=== PATIENT | male | born 1980 ===

== ENCOUNTER 2019-02-16 11:47 | Emergency (ER) | payer OTHER ==
[2019-02-16] MEDS ORDERED: NACL 0.9% 1000 ML 1,000 ML IV ONE ×4 (12:00→19:54)
--- NOTE | 2019-02-16 12:01 | Event Note ---
ED Screening Note Date of service: 02/16/19 Time: 11:57 ED Screening Note: 38 y/o male comes in for hyperglycemia. Just found out while at the doctor's. Newly diagnosed. This initial assessment/diagnostic orders/clinical plan/treatment(s) is/are subject to change based on patients health status, clinical progression and re- assessment by fellow clinical providers in the ED. Further treatment and workup at subsequent clinical providers discretion. Patient/guardian urged not to elope from the ED as their condition may be serious if not clinically assessed and managed. Initial orders include:
[2019-02-16 12:29] LABS: Bilirubin,Urine NEG (Negative); Blood,Urine NEG (Negative); Color,Urine Colorless (Yellow); Protein,Urine <15 mg/dL mg/dL (Negative); Urobilinogen,Urine < 2.0 mg/dL (<2.0); WBC,Urine < 1.0 /HPF (0.0-6.0)
[2019-02-16 13:00] LABS: Basophils # (Auto) 0.1 K/mm3 (0.0-0.1); Basophils % (Auto) 0.8 % (0.0-1.8); Eosinophils % (Auto) 0.3 % (0.0-4.3); Hematocrit 50.7 % (35.5-45.6); Hemoglobin 17.4 gm/dl (11.8-15.2); Lymphocytes # (Auto) 1.5 K/mm3 (1.2-5.4); Mean Corpuscular HGB Conc 34 % (32-34); Mean Corpuscular Volume 88 fl (84-94); Monocytes # (Auto) 0.5 K/mm3 (0.0-0.8); Platelet Count 164 K/mm3 (140-440); Red Blood Count 5.75 M/mm3 (3.65-5.03); Red Cell Distribution Width 13.5 % (13.2-15.2)
[2019-02-16 13:17] LABS: Alanine Aminotransferase 98 units/L (7-56); Albumin 4.3 g/dL (3.9-5); BUN/Creatinine Ratio 14; Blood Urea Nitrogen 14 mg/dL (9-20); Hemolysis Index 29
[2019-02-16] MEDS ORDERED: HumuLIN R IV ONE ×2 (13:25→19:54)
--- NOTE | 2019-02-16 13:32 | Emergency Department Report ---
ED General Adult HPI - General Chief complaint: Hyperglycemia Stated complaint: CONTROLLABLE DM Time Seen by Provider: 02/16/19 12:40 Source: patient Mode of arrival: Ambulatory Limitations: No Limitations - History of Present Illness Initial comments: Patient is a 38-year-old male who is presenting with hyperglycemia. Patient saw a clinic today because he's been very fatigued with decreased energy over the last week. Patient also is noted urinary frequency and was on the impression that he may have had a urinary tract infection. Patient's blood glucose was high at that time and he was sent here for further management. Patient states he has had some blurry vision increased thirst and increased urination over the last several weeks. He denies any nausea vomiting fevers chills cough cold congestion at this time. Patient states there is no family history that he knows of of diabetes. - Related Data Previous Rx's Medication Instructions Recorded Last Taken Type Ciprofloxacin HCl [Ciprofloxacin 500 mg PO Q12HR #10 tab 02/16/19 Unknown Rx TAB] Insulin NPH/Regular [Novolin 70/30] 15 unit SUB-Q TIDAC #1 vial 02/16/19 Unknown Rx Allergies Allergy/AdvReac Type Severity Reaction Status Date / Time No Known Allergies Allergy Verified 02/16/19 11:56 ED Review of Systems ROS: Stated complaint: CONTROLLABLE DM Other details as noted in HPI Comment: All other systems reviewed and negative ED Past Medical Hx - Past Medical History Previous Medical History?: No - Surgical History Past Surgical History?: No - Social History Smoking Status: Never Smoker Substance Use Type: None - Medications Home Medications: Home Medications Medication Instructions Recorded Confirmed Last Taken Type Ciprofloxacin HCl [Ciprofloxacin 500 mg PO Q12HR #10 tab 02/16/19 Unknown Rx TAB] Insulin NPH/Regular [Novolin 70/30] 15 unit SUB-Q TIDAC #1 vial 02/16/19 Unknown Rx ED Physical Exam - General Limitations: No Limitations General appearance: alert, in no apparent distress - Head Head exam: Present: atraumatic, normocephalic - Eye Eye exam: Present: normal appearance, PERRL, EOMI - ENT ENT exam: Present: mucous membranes moist - Neck Neck exam: Present: normal inspection - Respiratory Respiratory exam: Present: normal lung sounds bilaterally. Absent: respiratory distress, wheezes, rales, rhonchi, chest wall tenderness, accessory muscle use - Cardiovascular Cardiovascular Exam: Present: regular rate, normal rhythm, normal heart sounds. Absent: systolic murmur, diastolic murmur, rubs, gallop - GI/Abdominal GI/Abdominal exam: Present: soft, normal bowel sounds. Absent: distended, tenderness, guarding, rebound - Rectal Rectal exam: Present: deferred - Extremities Exam Extremities exam: Present: normal inspection - Back Exam Back exam: Present: normal inspection - Neurological Exam Neurological exam: Present: alert, oriented X3 - Psychiatric Psychiatric exam: Present: normal affect, normal mood - Skin Skin exam: Present: warm, dry, intact, normal color. Absent: rash ED Course Vital Signs 02/16/19 02/16/19 02/16/19 11:54 12:36 13:37 Temperature 97.5 F L Pulse Rate 81 87 70 Respiratory 16 18 18 Rate Blood Pressure 130/97 Blood Pressure 156/55 [Right] O2 Sat by Pulse Oximetry 02/16/19 02/16/19 02/16/19 17:43 20:05 21:23 Temperature Pulse Rate 78 81 80 Respiratory 16 24 19 Rate Blood Pressure Blood Pressure 124/81 120/71 135/87 [Right] O2 Sat by Pulse 99 100 Oximetry ED Medical Decision Making - Lab Data Result diagrams: 02/16/19 12:35 02/16/19 12:35 - Medical Decision Making Patient's is a 38-year-old gentleman who is here because of hyperglycemia. Patient's had blurry vision or increased thirst and frequent urination. Patient is noted to have a blood glucose in the 700 range. Patient was aggressively hydrated and given 10 units of insulin IV. Dr. Braswell with the hospitalist group has been consult to regarding outpatient management. Patient does not meet criteria Messer[place] for admission since the patient is not in DKA. Please see Dr. Braswell's note regarding the discharge planning for this patient. Critical Care Time: Yes (30) Critical care attestation.: If time is entered above; I have spent that time in minutes in the direct care of this critically ill patient, excluding procedure time. ED Disposition Clinical Impression: Diabetes mellitus, new onset, Moderate dehydration Disposition: DC-01 TO HOME OR SELFCARE Is pt being admited?: No Does the pt Need Aspirin: No Condition: Stable Instructions: Diabetes Mellitus Type 2 in Adults (ED) Prescriptions: Ciprofloxacin HCl [Ciprofloxacin TAB] 500 mg PO Q12HR #10 tab Insulin NPH/Regular [Novolin 70/30] 15 unit SUB-Q TIDAC #1 vial Referrals: VALERIE MAYNARD MD [Primary Care Provider] - 3-5 Days Forms: Work/School Release Form(ED)
[2019-02-16] MEDS ORDERED: NACL 0.45% 2,000 ML IV SCH (14:00)
[2019-02-16] MEDS ORDERED: NACL 0.45% 1000 ML 1,000 ML IV SCH ×2 (16:00→19:00)
--- NOTE | 2019-02-16 18:23 | Event Note ---
Date: 02/16/19 38 YO Male with Obesity presents to ED for evaluation. Pt seen and evaluated at an outpatient clinic and was found to have elevated serum glucose, and instructed to seek further care. Pt seen and evaluated in ED and found to have new onset DM complicated by volume depletion. Pt treated with IVF resuscitation therapy and subcutaneous insulin therapy with resolution of symptoms. Pt medically optimized and back to usual state of health. Pt discharged home and instructed to f/u pcp 1wk with glucose log three times daily. Pt counseled regarding carbohydrate counting as well as diabetic diet, annual eye exam, increased physical activity, balanced diet, and weight control. Pt acknowledges understanding instruction. Pt discharged home. - General Limitations: No Limitations General appearance: alert, in no apparent distress - Head Head exam: Present: atraumatic, normocephalic - Eye Eye exam: Present: normal appearance, PERRL, EOMI - ENT ENT exam: Present: mucous membranes moist - Neck Neck exam: Present: normal inspection - Respiratory Respiratory exam: Present: normal lung sounds bilaterally. Absent: respiratory distress, wheezes, rales, rhonchi, chest wall tenderness, accessory muscle use - Cardiovascular Cardiovascular Exam: Present: regular rate, normal rhythm, normal heart sounds. Absent: systolic murmur, diastolic murmur, rubs, gallop - GI/Abdominal GI/Abdominal exam: Present: soft, normal bowel sounds. Absent: distended, tenderness, guarding, rebound - Rectal Rectal exam: Present: deferred - Extremities Exam Extremities exam: Present: normal inspection - Back Exam Back exam: Present: normal inspection - Neurological Exam Neurological exam: Present: alert, oriented X3 - Psychiatric Psychiatric exam: Present: normal affect, normal mood - Skin Skin exam: Present: warm, dry, intact, normal color. Absent: rash
[2019-02-16] MEDS ORDERED: HumaLOG SUB-Q ONE (19:00)
[2019-02-16] MEDS ORDERED: LEVAQUIN 500MG/100ML 500 MG/100 ML BAG IV ONE (19:00)
[2019-02-16 21:24] VITALS: BP 135/87
== END 2019-02-16 21:24 ==
LOC: ED 11:47
DX: E11.65 Type 2 diabetes mellitus with hyperglycemia (principal); E86.0 Dehydration
CPT/HCPCS: 36415; 80053; 81001; 82805; 82962; 85025; 96361; 96365; 96372; 96375; 99283; J1956; J7030; J1815

== ENCOUNTER 2022-05-16 14:49 | Inpatient (IN) | payer SELFPAY ==
[2022-05-16] MEDS ORDERED: ACETAMINOPHEN 500 MG TAB PO ONE (15:31)
--- NOTE | 2022-05-16 15:32 | Event Note ---
ED Screening Note ED Screening Note: 41 yo sent from clinic for testicular pain ? abscess This initial assessment/diagnostic orders/clinical plan/treatment(s) is/are subject to change based on patients health status, clinical progression and re- assessment by fellow clinical providers in the ED. Further treatment and workup at subsequent clinical providers discretion. Patient/guardian urged not to elope from the ED as their condition may be serious if not clinically assessed and managed. Initial orders include: labs us ? drain
--- NOTE | 2022-05-16 16:39 | Ultrasound Report ---
ULTRASOUND SCROTUM INDICATION / CLINICAL INFORMATION: pain. COMPARISON: None available. FINDINGS -- RIGHT: TESTIS: Size = 5.3 x 2.9 x 3.3 cm. - Appearance: No significant abnormality. - Cyst / Mass: None. - Color Doppler Flow: No significant abnormality. EPIDIDYMIS: No significant abnormality. HYDROCELE: None. VARICOCELE: None demonstrated. FINDINGS -- LEFT: TESTIS: Size = 5.0 x 2.9 x 3.4 cm. - Appearance: No significant abnormality. - Cyst / Mass: None. - Color Doppler Flow: Mild increased vascularity as compared to the right testis. EPIDIDYMIS: Left epididymal tail is enlarged and hypervascular with possible developing epididymal a bscess. HYDROCELE: Small left hydrocele. VARICOCELE: None demonstrated. ADDITIONAL FINDINGS: Skin thickening and edema of the scrotum overlying the left testicle.. IMPRESSION: 1. Extensive epididymitis of the left epididymal tail with likely pyocele. 2. Mild increased vascularity within the left testicle as compared to the right, possibly representin g developing left-sided orchitis. 3. Skin thickening and edema of the scrotum overlying the left testicle. Signer Name: Korey Dominguez MD Signed: 05/16/2022 4:35 PM Workstation Name: [email or web address]
[2022-05-16] MEDS ORDERED: MORPHINE 4 MG/1 ML INJ IV ONE (17:01)
[2022-05-16] MEDS ORDERED: cefTRIAXone/NS 1 GM/50 ML 1 GM/50 ML BAG IV ONE (17:02)
[2022-05-16] MEDS ORDERED: VANCOMYCIN/NS 1 GM/250 ML 1 GM/250 ML BAG IV ONE (17:03)
[2022-05-16] MEDS ORDERED: PIPERACILLIN/TAZOBACTAM 3.375 3.375 GM/50 ML BAG IV ONE (17:03)
[2022-05-16 17:18] LABS: Hematocrit 44.8 % (35.5-45.6); Hemoglobin 15.1 gm/dl (11.8-15.2); Mean Corpuscular HGB Conc 34 % (32-34); Mean Corpuscular Volume 88 fl (84-94); Platelet Count 183 K/mm3 (140-440); Red Blood Count 5.12 M/mm3 (3.65-5.03); Red Cell Distribution Width 13.7 % (13.2-15.2)
[2022-05-16 17:57] LABS: Basophils % (Manual) 0 % (0.0-1.8); Large Platelets Few; Platelet Estimate Consistent w Auto; RBC Morphology Normal; Total Cells Counted 100
[2022-05-16] MEDS ORDERED: SODIUM CHLORIDE 0.9% 1000 ML 1,000 ML IV ONE ×2 (18:00→20:15)
[2022-05-16 18:05] LABS: Alanine Aminotransferase 55 units/L (7-56); Albumin 4.4 g/dL (3.9-5); BUN/Creatinine Ratio 14; Blood Urea Nitrogen 14 mg/dL (9-20); Calcium 9.1 mg/dL (8.4-10.2); Hemolysis Index 5
[2022-05-16 18:21] LABS: INR 0.98 (0.87-1.13)
--- NOTE | 2022-05-16 19:49 | Cat Scan Report ---
CT pelvis w con INDICATION / CLINICAL INFORMATION: braden. TECHNIQUE: Axial, coronal and sagittal images All CT scans at this location are performed using CT dose reductio n for ALARA by means of automated exposure control. COMPARISON: None available. FINDINGS: There is diffuse scrotal edema with scrotal wall thickening. Diffuse fluid is seen surrounding the te sticles with marked inflammatory change within the scrotum and surrounding the penis. No perirectal i nflammatory change. Lower abdomen and pelvis appear normal. Bowel loops appear normal. Urinary bladde r is unremarkable. IMPRESSION: 1. Marked abnormality with diffuse scrotal wall thickening, inflammatory change, wall edema and scrot al edema. Diffuse fluid surrounding the testicles. Fines could represent infectious etiology Signer Name: Iván Orozco MD Signed: 05/16/2022 7:45 PM Workstation Name: [id number]
[2022-05-16] MEDS ORDERED: KETOROLAC 30 MG/1 ML INJ IV ONE (20:06)
[2022-05-16] MEDS ORDERED: diphenhydrAMINE 50 MG/ML VIAL IV ONE (20:34)
--- NOTE | 2022-05-16 22:13 | Emergency Department Report ---
ED General Adult HPI - General Chief complaint: Skin/Abscess/Foreign Body Stated complaint: INFECTION PUI?: No Time Seen by Provider: 05/16/22 17:00 Source: patient Mode of arrival: Ambulatory Limitations: No Limitations - History of Present Illness Initial comments: pt is 41 years old T2DM , here today fpor scrtoal swelling started on sunday with scratch to his back of his scrotum , presented today with fever and increased swelling and pain -: Gradual, days(s) Location: genitals Severity scale (0 -10): 5 Quality: aching Consistency: constant Improves with: none Worsens with: none Associated Symptoms: fever/chills. denies: denies other symptoms, confusion, chest pain, cough, diaphoresis, headaches, loss of appetite Treatments Prior to Arrival: none - Related Data Previous Rx's Medication Instructions Recorded Last Taken Type Ciprofloxacin HCl [Ciprofloxacin 500 mg PO Q12HR #10 tab 02/16/19 Unknown Rx TAB] Insulin NPH/Regular [Novolin 70/30] 15 unit SUB-Q TIDAC #1 vial 02/16/19 Unknown Rx Allergies Allergy/AdvReac Type Severity Reaction Status Date / Time No Known Allergies Allergy Verified 05/16/22 15:10 ED Review of Systems ROS: Stated complaint: INFECTION Other details as noted in HPI Constitutional: denies: chills, fever Eyes: denies: eye pain, eye discharge, vision change ENT: denies: ear pain, throat pain Respiratory: denies: cough, shortness of breath, wheezing Cardiovascular: denies: chest pain, palpitations Endocrine: no symptoms reported Gastrointestinal: denies: abdominal pain, nausea, diarrhea Genitourinary: denies: urgency, dysuria Musculoskeletal: denies: back pain, joint swelling, arthralgia Skin: denies: rash, lesions Neurological: denies: headache, weakness, paresthesias Psychiatric: denies: anxiety, depression Hematological/Lymphatic: denies: easy bleeding, easy bruising ED Past Medical Hx - Past Medical History Previous Medical History?: No Hx Hypertension: No - Surgical History Past Surgical History?: No - Social History Smoking Status: Never Smoker Substance Use Type: Alcohol - Medications Home Medications: Home Medications Medication Instructions Recorded Confirmed Last Taken Type Ciprofloxacin HCl [Ciprofloxacin 500 mg PO Q12HR #10 tab 02/16/19 Unknown Rx TAB] Insulin NPH/Regular [Novolin 70/30] 15 unit SUB-Q TIDAC #1 vial 02/16/19 Unknown Rx ED Physical Exam - General Limitations: No Limitations General appearance: alert, in no apparent distress - Head Head exam: Present: atraumatic, normocephalic - Eye Eye exam: Present: normal appearance - ENT ENT exam: Present: mucous membranes moist - Neck Neck exam: Present: normal inspection - Respiratory Respiratory exam: Present: normal lung sounds bilaterally. Absent: respiratory distress - Cardiovascular Cardiovascular Exam: Present: normal rhythm, tachycardia. Absent: systolic murmur, diastolic murmur, rubs, gallop - GI/Abdominal GI/Abdominal exam: Present: soft, normal bowel sounds - Rectal Rectal exam: Present: deferred - External exam: Present: erythema, swelling - Extremities Exam Extremities exam: Present: normal inspection - Back Exam Back exam: Present: normal inspection - Neurological Exam Neurological exam: Present: alert, oriented X3 - Psychiatric Psychiatric exam: Present: normal affect, normal mood - Skin Skin exam: Present: warm, dry, intact, normal color. Absent: rash ED Course Vital Signs 05/16/22 05/16/22 05/16/22 15:29 17:54 18:04 Temperature 103.1 F H Pulse Rate 136 H 132 H Respiratory 18 24 38 H Rate Blood Pressure 128/74 [Left] O2 Sat by Pulse 99 91 Oximetry 05/16/22 05/16/22 05/16/22 18:13 18:14 19:40 Temperature 100.8 F H Pulse Rate 138 H 143 H Respiratory 36 H 39 H 26 H Rate Blood Pressure 122/76 135/81 [Left] O2 Sat by Pulse 98 98 100 Oximetry 05/16/22 20:14 Temperature Pulse Rate Respiratory 21 Rate Blood Pressure [Left] O2 Sat by Pulse Oximetry ED Medical Decision Making - Lab Data Result diagrams: 05/16/22 16:43 05/16/22 16:43 - Radiology Data Radiology results: report reviewed, image reviewed - Medical Decision Making work up showed elevated wbc , hyperglycemia , US showed epididimo orchitis and possible abscess abx started fluids fever and pain control, spoke with dr Ellis , agreed to follow up Critical care attestation.: If time is entered above; I have spent that time in minutes in the direct care of this critically ill patient, excluding procedure time. ED Disposition Clinical Impression: Fever, Sepsis, Scrotal abscess, Epididymo-orchitis Disposition: 09 ADMITTED INPATIENT Is pt being admited?: Yes Does the pt Need Aspirin: No Condition: Stable Instructions: Epididymitis (ED) Referrals: PRIMARY CARE, [Primary Care Provider] - 3-5 Days Forms: STI Treatment and Prevention
[2022-05-16] MEDS ORDERED: MORPHINE 4 MG/1 ML INJ IV PRN (22:14)
[2022-05-16] MEDS ORDERED: ACETAMINOPHEN 325 MG TAB PO PRN (22:14)
[2022-05-16] MEDS ORDERED: DEXTROSE 50% IN WATER (25GM) 50 ML SYRINGE IV PRN (22:14)
[2022-05-16] MEDS ORDERED: MAGNESIUM HYDROXIDE (MOM) ORAL LIQD UDC PO PRN (22:14)
[2022-05-16] MEDS ORDERED: ONDANSETRON 4 MG/2 ML INJ IV PRN (22:14)
--- NOTE | 2022-05-16 22:25 | History and Physical Report ---
History of Present Illness Date of examination: 05/16/22 Date of admission: 05/16/2022 Chief complaint: Scrotal Swelling and Pain History of present illness: 41-year-old male with known history of diabetes mellitus presents to the emergency room today complaining of scrotal swelling and pain which has been ongoing for the past 3 days. Patient indicates that he scratched the skin over his scrotum a few days prior and subsequently started having swelling and pain in the scrotum. He developed a fever earlier today. Swelling has been getting worse. Patient denies any nausea or vomiting, no diarrhea. No hematuria or dysuria. Denies any penile discharge. Work-up in the emergency room today, labs reveal leukocytosis of 22.2, blood glucose of 206, C-reactive protein of 10.8. Urinalysis essentially negative. Urine drug screen was positive for amphetamine, opiates. Testicular ultrasound reveals:1. Extensive epididymitis of the left epididymal t ail with likely pyocele. 2. Mild increased vascularity within the left testicle as compared to the right, possibly representing developing left-sided orchitis. 3. Skin thickening and edema of the scrotum overlying the left testicle. Pelvic CT reveals:1. Marked abnormality with diffuse scrotal wall thickening, inflammatory change, wall edema and scrotal edema. Diffuse fluid surrounding the testicles. Fines could represent infectious etiology Urologist on-call-Dr. Ellis has been consulted by the ER physician for further evaluation and recommendations. Patient started on empiric IV antibiotics. Past History Past Medical History: diabetes, hypertension Past Surgical History: No surgical history Social history: alcohol abuse Family history: no significant family history Medications and Allergies Allergies Allergy/AdvReac Type Severity Reaction Status Date / Time No Known Allergies Allergy Verified 05/16/22 15:10 Home Medications Medication Instructions Recorded Confirmed Last Taken Type Ciprofloxacin HCl [Ciprofloxacin 500 mg PO Q12HR #10 tab 02/16/19 Unknown Rx TAB] Insulin NPH/Regular [Novolin 70/30] 15 unit SUB-Q TIDAC #1 vial 02/16/19 Unknown Rx Active Meds: Active Medications Acetaminophen (Acetaminophen 325 Mg Tab) 650 mg PO Q4H PRN PRN Reason: Pain MILD(1-3)/Fever >100.5/DWYER Dextrose (Dextrose 50% In Water (25gm) 50 Ml Syringe) 50 ml IV Q30MIN PRN; Protocol PRN Reason: Hypoglycemia Dextrose (Dextrose 50% In Water (25gm) 50 Ml Syringe) 50 ml IV Q30MIN PRN; Protocol PRN Reason: Hypoglycemia Sodium Chloride (Nacl 0.9% 1000 Ml) 1,000 mls @ 125 mls/hr IV DIRECT VALERIE Insulin Human Lispro (Insulin Lispro 100 Unit/Ml) 0 unit SUB-Q ACHS VALERIE; Protocol Magnesium Hydroxide (Magnesium Hydroxide (Mom) Oral Liqd Udc) 30 ml PO Q4H PRN PRN Reason: Constipation Morphine Sulfate (Morphine 2 Mg/1 Ml Inj) 2 mg IV Q4H PRN PRN Reason: Pain, Moderate (4-6) Morphine Sulfate (Morphine 4 Mg/1 Ml Inj) 4 mg IV Q4H PRN PRN Reason: Pain , Severe (7-10) Ondansetron HCl (Ondansetron 4 Mg/2 Ml Inj) 4 mg IV Q8H PRN PRN Reason: Nausea And Vomiting Sodium Chloride (Sodium Chloride 0.9% 10 Ml Flush Syringe) 10 ml IV BID VALERIE Sodium Chloride (Sodium Chloride 0.9% 10 Ml Flush Syringe) 10 ml IV PRN PRN PRN Reason: LINE FLUSH Review of Systems Constitutional: fever, no chills Ears, nose, mouth and throat: no nasal congestion, no sore throat Cardiovascular: no chest pain, no palpitations Respiratory: no cough, no shortness of breath Gastrointestinal: no abdominal pain, no nausea, no vomiting, no diarrhea Genitourinary Male: no dysuria, no hematuria, no flank pain, no nocturia Musculoskeletal: no neck pain, no low back pain Integumentary: no rash, no pruritis Neurological: no headaches, no confusion Psychiatric: no anxiety, no depression Endocrine: no polyphagia, no polydipsia, no polyuria Exam - Constitutional Vitals: Temp Pulse Resp BP Pulse Ox 100.8 F H 122 H 26 H 120/66 96 05/16/22 19:40 05/16/22 22:15 05/16/22 20:45 05/16/22 22:15 05/16/22 22:15 General appearance: Present: no acute distress, well-nourished - EENT Eyes: Present: PERRL, EOM intact. Absent: scleral icterus ENT: hearing intact, clear oral mucosa, dentition normal - Neck Neck: Present: supple, normal ROM - Respiratory Respiratory effort: normal Respiratory: bilateral: CTA - Cardiovascular Rhythm: regular Heart Sounds: Present: S1 & S2. Absent: gallop, systolic murmur, diastolic murmur, rub, click - Extremities Extremities: no ischemia, pulses intact, pulses symmetrical, No edema, normal temperature, normal color, Full ROM Peripheral Pulses: within normal limits - Abdominal General gastrointestinal: Present: soft, non-tender, non-distended, normal bowel sounds. Absent: mass Male genitourinary: Present: tender (I am good thank you fine thank you), scrota l edema - Integumentary Integumentary: Present: clear, warm, dry, normal turgor. Absent: rash - Musculoskeletal Musculoskeletal: strength equal bilaterally - Psychiatric Psychiatric: appropriate mood/affect, intact judgment & insight, memory intact, cooperative - Neurologic Neurologic: CNII-XII intact, no focal deficits, moves all extremities HEART Score - HEART Score Troponin: Troponin T < 0.010 ng/mL (0.00-0.029) 05/16/22 17:16 Results - Labs CBC & Chem 7: 05/16/22 16:43 05/16/22 16:43 Labs: Abnormal lab results 05/16/22 05/16/22 05/16/22 Range/Units 16:43 16:43 16:43 WBC 22.2 H (4.5-11.0) K/mm3 RBC 5.12 H (3.65-5.03) M/mm3 Seg Neuts % (Manual) 92.0 H (40.0-70.0) % Lymphocytes % (Manual) 6.0 L (13.4-35.0) % Seg Neutrophils # Man 20.4 H (1.8-7.7) K/mm3 Glucose 206 H (75-100) mg/dL Lactic Acid 2.20 H* (0.7-2.0) mmol/L Total Creatine Kinase (55-170) units/L C-Reactive Protein (0.00-1.30) mg/dL 05/16/22 05/16/22 Range/Units 17:16 17:16 WBC (4.5-11.0) K/mm3 RBC (3.65-5.03) M/mm3 Seg Neuts % (Manual) (40.0-70.0) % Lymphocytes % (Manual) (13.4-35.0) % Seg Neutrophils # Man (1.8-7.7) K/mm3 Glucose (75-100) mg/dL Lactic Acid (0.7-2.0) mmol/L Total Creatine Kinase 210 H (55-170) units/L C-Reactive Protein 10.80 H (0.00-1.30) mg/dL Assessment and Plan Assessment: 1.Scrotal Abscess 2.Sepsis 3.Diabetes Mellitus Plan: 1.Admitted and placed on empiric IV antibiotics and fluid 2.Placed on sliding scale insulin. Monitor accuchecks 3.Urology consult placed. Awaiting further evaluation and recommendations DVT Prophylaxis: SCD Code Status: Full Code
[2022-05-16] MEDS ORDERED: methylPREDNISolone Sod Succinate 125 MG/2 ML INJ IV ONE (23:08)
[2022-05-16 23:20] LABS: Mucus,Urine FEW /HPF; WBC,Urine < 1.0 /HPF (0.0-6.0)
[2022-05-16 23:22] LABS: Bilirubin,Urine Negative (Negative); Blood,Urine Negative (Negative); Color,Urine Yellow (Yellow); Protein,Urine <15 mg/dL mg/dL (Negative); Urobilinogen,Urine < 2.0 mg/dL (<2.0)
[2022-05-16 23:23] LABS: RBC,Urine < 1.0 /HPF (0.0-6.0)
[2022-05-16 23:29] LABS: Amphetamine Screen,Urine PRESUMPTIVE POSITIVE; Benzodiazepines Screen,Urine PRESUMPTIVE NEGATIVE; Cannabinoid Screen,Urine PRESUMPTIVE NEGATIVE; Cocaine Screen,Urine PRESUMPTIVE NEGATIVE; Methadone Screen,Urine PRESUMPTIVE NEGATIVE; Opiate Screen,Urine PRESUMPTIVE POSITIVE
[2022-05-17] MEDS ORDERED: VANCOMYCIN PHARMACY TO DOSE IV SCH (01:00)
[2022-05-17] MEDS ORDERED: PIPERACILLIN/TAZOBACTAM 3.375 3.375 GM/50 ML BAG IV SCH (01:00)
[2022-05-17] MEDS: PIPERACIL/TAZOBACTA 4.5/NS 100 4.5 GM/100 ML VIAL IV SCH ×3 (02:08→18:26)
[2022-05-17] MEDS: SODIUM CHLORIDE 0.9% 1000 ML 1,000 ML IV SCH ×2 (02:08→11:47)
[2022-05-17 05:59] LABS: Blood Urea Nitrogen 15 mg/dL (9-20); Calcium 7.9 mg/dL (8.4-10.2); Hemolysis Index 4
[2022-05-17] MEDS ORDERED: VANCOMYCIN 1,500 MG in SODIUM CHLORIDE 0.9% 500 ML 500 ML IV SCH (06:00)
[2022-05-17 06:04] LABS: BUN/Creatinine Ratio 21
[2022-05-17] MEDS: INSULIN LISPRO 100 UNIT/ML SUB-Q SCH ×3 (09:19→18:19)
--- NOTE | 2022-05-17 10:55 | Consultation ---
History of Present Illness - Reason for Consult Consult date: 05/17/22 - History of Present Illness NEW TO OUR SERVICE Scrotal Swelling and Pain 41-year-old male with known history of diabetes mellitus presents to the emergency room today complaining of scrotal swelling and pain which has been ongoing for the past 3 days. Patient indicates that he scratched the skin over his scrotum a few days prior and subsequently started having swelling and pain i n the scrotum. He developed a fever earlier today. Swelling has been getting worse. Patient denies any nausea or vomiting, no diarrhea. No hematuria or dysuria. Denies any penile discharge. Work-up in the emergency room- labs reveal leukocytosis of 22.2, blood glucose of 206, Urinalysis essentially negative. Urine drug screen was positive for amphetamine, opiates. Testicular ultrasound reveals: 1. Extensive epididymitis of the left epididymal tail with likely pyocele. 2. Mild increased vascularity within the left testicle as compared to the right, possibly representing developing left-sided orchitis. 3. Skin thickening and edema of the scrotum overlying the left testicle. Pelvic CT reveals: - Marked abnormality with diffuse scrotal wall thickening, inflammatory change, wall edema and scrotal edema. Diffuse fluid surrounding the testicles. Fines could represent infectious etiology exam--- normal uncirc phallus scrotal with diffuse swelling----soft A/P epididymitis no surgery indicated at this time continue abx Past History Past Medical History: diabetes, hypertension Past Surgical History: No surgical history Social history: alcohol abuse Family history: no significant family history Medications and Allergies Allergies Allergy/AdvReac Type Severity Reaction Status Date / Time vancomycin Allergy Rash Verified 05/17/22 01:28 Home Medications Medication Instructions Recorded Confirmed Last Taken Type Ciprofloxacin HCl [Ciprofloxacin 500 mg PO Q12HR #10 tab 02/16/19 Unknown Rx TAB] Insulin NPH/Regular [Novolin 70/30] 15 unit SUB-Q TIDAC #1 vial 02/16/19 Unknown Rx Active Meds: Active Medications Acetaminophen (Acetaminophen 325 Mg Tab) 650 mg PO Q4H PRN PRN Reason: Pain MILD(1-3)/Fever >100.5/DWYER Dextrose (Dextrose 50% In Water (25gm) 50 Ml Syringe) 50 ml IV Q30MIN PRN; Protocol PRN Reason: Hypoglycemia Famotidine (Famotidine 20 Mg Tab) 20 mg PO BID VALERIE Sodium Chloride (Nacl 0.9% 1000 Ml) 1,000 mls @ 125 mls/hr IV DIRECT VALERIE Last Admin: 05/17/22 02:08 Dose: 125 mls/hr Piperacillin Sod/Tazobactam Sod (Zosyn/Ns 4.5gm/100ml) 4.5 gm in 100 mls @ 200 mls/hr IV Q8H VALERIE; Protocol Last Admin: 05/17/22 09:46 Dose: 200 mls/hr Clindamycin HCl (Cleocin 900 Mg/50 Ml) 900 mg in 50 mls @ 100 mls/hr IV Q8H VALERIE Last Admin: 05/17/22 03:02 Dose: 100 mls/hr Insulin Human Lispro (Insulin Lispro 100 Unit/Ml) 0 unit SUB-Q ACHS VALERIE; Protocol Last Admin: 05/17/22 09:19 Dose: 6 unit Magnesium Hydroxide (Magnesium Hydroxide (Mom) Oral Liqd Udc) 30 ml PO Q4H PRN PRN Reason: Constipation Morphine Sulfate (Morphine 2 Mg/1 Ml Inj) 2 mg IV Q4H PRN PRN Reason: Pain, Moderate (4-6) Morphine Sulfate (Morphine 4 Mg/1 Ml Inj) 4 mg IV Q4H PRN PRN Reason: Pain , Severe (7-10) Ondansetron HCl (Ondansetron 4 Mg/2 Ml Inj) 4 mg IV Q8H PRN PRN Reason: Nausea And Vomiting Sodium Chloride (Sodium Chloride 0.9% 10 Ml Flush Syringe) 10 ml IV BID [facility] Sodium Chloride (Sodium Chloride 0.9% 10 Ml Flush Syringe) 10 ml IV PRN PRN PRN Reason: LINE FLUSH Exam - Constitutional Vitals: Temp Pulse Resp BP Pulse Ox 98.9 F 102 H 20 109/67 94 05/17/22 01:15 05/17/22 01:15 05/17/22 01:15 05/17/22 01:15 05/17/22 01:25 Results - Labs CBC & Chem 7: 05/16/22 16:43 05/17/22 05:23 Labs: Abnormal lab results 05/16/22 05/16/22 05/16/22 Range/Units 16:43 16:43 16:43 WBC 22.2 H (4.5-11.0) K/mm3 RBC 5.12 H (3.65-5.03) M/mm3 Seg Neuts % (Manual) 92.0 H (40.0-70.0) % Lymphocytes % (Manual) 6.0 L (13.4-35.0) % Seg Neutrophils # Man 20.4 H (1.8-7.7) K/mm3 Sodium (137-145) mmol/L Carbon Dioxide (22-30) mmol/L Creatinine (0.8-1.3) mg/dL Glucose 206 H (75-100) mg/dL Lactic Acid 2.20 H* (0.7-2.0) mmol/L Calcium (8.4-10.2) mg/dL Total Creatine Kinase (55-170) units/L C-Reactive Protein (0.00-1.30) mg/dL 05/16/22 05/16/22 05/17/22 Range/Units 17:16 17:16 05:23 WBC (4.5-11.0) K/mm3 RBC (3.65-5.03) M/mm3 Seg Neuts % (Manual) (40.0-70.0) % Lymphocytes % (Manual) (13.4-35.0) % Seg Neutrophils # Man (1.8-7.7) K/mm3 Sodium 134 L (137-145) mmol/L Carbon Dioxide 20 L (22-30) mmol/L Creatinine 0.7 L (0.8-1.3) mg/dL Glucose 310 H (75-100) mg/dL Lactic Acid (0.7-2.0) mmol/L Calcium 7.9 L (8.4-10.2) mg/dL Total Creatine Kinase 210 H (55-170) units/L C-Reactive Protein 10.80 H (0.00-1.30) mg/dL
[2022-05-17] MEDS: FAMOTIDINE 20 MG TAB PO SCH ×2 (11:54→21:32)
--- NOTE | 2022-05-17 18:40 | Progress Note ---
Assessment and Plan Assessment and plan: 41-year-old male with known history of diabetes mellitus presents to the emergency room today complaining of scrotal swelling and pain which has been ongoing for the past 3 days. Patient indicates that he scratched the skin over his scrotum a few days prior and subsequently started having swelling and pain in the scrotum. He developed a fever earlier today. Swelling has been getting worse. Patient denies any nausea or vomiting, no diarrhea. No hematuria or dysuria. Denies any penile discharge. Work-up in the emergency room today, labs reveal leukocytosis of 22.2, blood glucose of 206, C-reactive protein of 10.8. Urinalysis essentially negative. Urine drug screen was positive for amphetamine, opiates. Testicular ultrasound reveals:1. Extensive epididymitis of the left epididymal tail with likely pyocele. 2. Mild increased vascularity within the left testicle as compared to the right, possibly representing developing left-sided orchitis. 3. Skin thickening and edema of the scrotum overlying the left testicle. Pelvic CT reveals:1. Marked abnormality with diffuse scrotal wall thickening, inflammatory change, wall edema and scrotal edema. Diffuse fluid surrounding the testicles. Fines could represent infectious etiology Urologist on-call-Dr. Ellis has been consulted by the ER physician for further evaluation and recommendations. Patient started on empiric IV antibiotics. Assessment: 1.cellulitis of left scrotum with epididymitis 2.Sepsis with fever and leukocytosis. UA negative. Blood cultures negative to date. 3.Diabetes Mellitus with elevated blood glucose Plan: 1.Admitted and placed on empiric IV antibiotics and fluid 2.Placed on sliding scale insulin. Monitor accuchecks 3.Urology consulted, no surgical intervention needed, recommends continuation of IV antibiotic therapy. DVT Prophylaxis: SCD Code Status: Full Code Discussed the patient, and the nursing staff. History Interval history: Patient presented bedside. Scrotal pain some better. Fever and leukocytosis improved. Seen by urology today, no need for I&D. Recommends antibiotic therapy for now. Patient is elevated. Per patient, takes only oral medications for diabetes. Hospitalist Physical - Constitutional Vitals: Temp Pulse Resp BP Pulse Ox 98.9 F 102 H 20 109/67 94 05/17/22 01:15 05/17/22 01:15 05/17/22 13:25 05/17/22 01:15 05/17/22 13:25 General appearance: Present: no acute distress, well-nourished - EENT Eyes: Present: PERRL, EOM intact ENT: clear oral mucosa - Neck Neck: Present: supple - Respiratory Respiratory effort: normal Respiratory: bilateral: CTA - Cardiovascular Rhythm: regular - Extremities Extremities: No edema - Abdominal General gastrointestinal: soft, non-tender, non-distended - Psychiatric Psychiatric: appropriate mood/affect - Neurologic Neurologic: no focal deficits - Additional findings Additional findings: Genitalia: Left scrotum is significantly swollen red and tender. Soft and fluctuant. Left spermatic cord tender. HEART Score - HEART Score Troponin: Troponin T < 0.010 ng/mL (0.00-0.029) 05/16/22 17:16 Results - Labs CBC & Chem 7: 05/18/22 22:57 05/18/22 22:57 Labs: Laboratory Last Values WBC 22.2 K/mm3 (4.5-11.0) H 05/16/22 16:43 RBC 5.12 M/mm3 (3.65-5.03) H 05/16/22 16:43 Hgb 15.1 gm/dl (11.8-15.2) 05/16/22 16:43 Hct 44.8 % (35.5-45.6) 05/16/22 16:43 MCV 88 fl (84-94) 05/16/22 16:43 MCH 30 pg (28-32) 05/16/22 16:43 MCHC 34 % (32-34) 05/16/22 16:43 RDW 13.7 % (13.2-15.2) 05/16/22 16:43 Plt Count 183 K/mm3 (140-440) 05/16/22 16:43 Add Manual Diff Complete 05/16/22 16:43 Total Counted 100 05/16/22 16:43 Seg Neuts % (Manual) 92.0 % (40.0-70.0) H 05/16/22 16:43 Band Neutrophils % 0 % 05/16/22 16:43 Lymphocytes % (Manual) 6.0 % (13.4-35.0) L 05/16/22 16:43 Reactive Lymphs % (Man) 0 % 05/16/22 16:43 Monocytes % (Manual) 1.0 % (0.0-7.3) 05/16/22 16:43 Eosinophils % (Manual) 1.0 % (0.0-4.3) 05/16/22 16:43 Basophils % (Manual) 0 % (0.0-1.8) 05/16/22 16:43 Metamyelocytes % 0 % 05/16/22 16:43 Myelocytes % 0 % 05/16/22 16:43 Promyelocytes % 0 % 05/16/22 16:43 Blast Cells % 0 % 05/16/22 16:43 Nucleated RBC % Not Reportable 05/16/22 16:43 Seg Neutrophils # Man 20.4 K/mm3 (1.8-7.7) H 05/16/22 16:43 Band Neutrophils # 0.0 K/mm3 05/16/22 16:43 Lymphocytes # (Manual) 1.3 K/mm3 (1.2-5.4) 05/16/22 16:43 Abs React Lymphs (Man) 0.0 K/mm3 05/16/22 16:43 Monocytes # (Manual) 0.2 K/mm3 (0.0-0.8) 05/16/22 16:43 Eosinophils # (Manual) 0.2 K/mm3 (0.0-0.4) 05/16/22 16:43 Basophils # (Manual) 0.0 K/mm3 (0.0-0.1) 05/16/22 16:43 Metamyelocytes # 0.0 K/mm3 05/16/22 16:43 Myelocytes # 0.0 K/mm3 05/16/22 16:43 Promyelocytes # 0.0 K/mm3 05/16/22 16:43 Blast Cells # 0.0 K/mm3 05/16/22 16:43 WBC Morphology Not Reportable 05/16/22 16:43 Hypersegmented Neuts Not Reportable 05/16/22 16:43 Hyposegmented Neuts Not Reportable 05/16/22 16:43 Hypogranular Neuts Not Reportable 05/16/22 16:43 Smudge Cells Not Reportable 05/16/22 16:43 Toxic Granulation Not Reportable 05/16/22 16:43 Toxic Vacuolation Not Reportable 05/16/22 16:43 Dohle Bodies Not Reportable 05/16/22 16:43 Pelger-Huet Anomaly Not Reportable 05/16/22 16:43 Naila Rods Not Reportable 05/16/22 16:43 Platelet Estimate Consistent w auto 05/16/22 16:43 Clumped Platelets Not Reportable 05/16/22 16:43 Plt Clumps, EDTA Not Reportable 05/16/22 16:43 Large Platelets Few 05/16/22 16:43 Giant Platelets Not Reportable 05/16/22 16:43 Platelet Satelliting Not Reportable 05/16/22 16:43 Plt Morphology Comment Not Reportable 05/16/22 16:43 RBC Morphology Normal 05/16/22 16:43 Dimorphic RBCs Not Reportable 05/16/22 16:43 Polychromasia Not Reportable 05/16/22 16:43 Hypochromasia Not Reportable 05/16/22 16:43 Poikilocytosis Not Reportable 05/16/22 16:43 Anisocytosis Not Reportable 05/16/22 16:43 Microcytosis Not Reportable 05/16/22 16:43 Macrocytosis Not Reportable 05/16/22 16:43 Spherocytes Not Reportable 05/16/22 16:43 Pappenheimer Bodies Not Reportable 05/16/22 16:43 Sickle Cells Not Reportable 05/16/22 16:43 Target Cells Not Reportable 05/16/22 16:43 Tear Drop Cells Not Reportable 05/16/22 16:43 Ovalocytes Not Reportable 05/16/22 16:43 Helmet Cells Not Reportable 05/16/22 16:43 Sosa-[place] Bodies Not Reportable 05/16/22 16:43 [place] Rings Not Reportable 05/16/22 16:43 Garo Cells Not Reportable 05/16/22 16:43 Bite Cells Not Reportable 05/16/22 16:43 Crenated Cell Not Reportable 05/16/22 16:43 Elliptocytes Not Reportable 05/16/22 16:43 Acanthocytes (Spur) Not Reportable 05/16/22 16:43 Rouleaux Not Reportable 05/16/22 16:43 Hemoglobin C Crystals Not Reportable 05/16/22 16:43 Schistocytes Not Reportable 05/16/22 16:43 Malaria parasites Not Reportable 05/16/22 16:43 Christophe Bodies Not Reportable 05/16/22 16:43 Hem Pathologist Commnt No 05/16/22 16:43 PT 14.4 Sec. (12.2-14.9) 05/16/22 17:16 INR 0.98 (0.87-1.13) 05/16/22 17:16 Sodium 134 mmol/L (137-145) L 05/17/22 05:23 Potassium 4.2 mmol/L (3.6-5.0) 05/17/22 05:23 Chloride 103.5 mmol/L (98-107) 05/17/22 05:23 Carbon Dioxide 20 mmol/L (22-30) L 05/17/22 05:23 Anion Gap 15 mmol/L 05/17/22 05:23 BUN 15 mg/dL (9-20) 05/17/22 05:23 Creatinine 0.7 mg/dL (0.8-1.3) L 05/17/22 05:23 Estimated GFR > 60 ml/min 05/17/22 05:23 BUN/Creatinine Ratio 21 % 05/17/22 05:23 Glucose 310 mg/dL (75-100) H 05/17/22 05:23 POC Glucose 294 mg/dL (70-105) H 05/17/22 16:03 Lactic Acid 1.60 mmol/L (0.7-2.0) 05/16/22 18:22 Calcium 7.9 mg/dL (8.4-10.2) L 05/17/22 05:23 Total Bilirubin 1.00 mg/dL (0.1-1.2) 05/16/22 16:43 AST 24 units/L (5-40) 05/16/22 16:43 ALT 55 units/L (7-56) 05/16/22 16:43 Alkaline Phosphatase 99 units/L (35-129) 05/16/22 16:43 Total Creatine Kinase 210 units/L (55-170) H 05/16/22 17:16 Troponin T < 0.010 ng/mL (0.00-0.029) 05/16/22 17:16 C-Reactive Protein 10.80 mg/dL (0.00-1.30) H 05/16/22 17:16 Total Protein 7.9 g/dL (6.3-8.2) 05/16/22 16:43 Albumin 4.4 g/dL (3.9-5) 05/16/22 16:43 Albumin/Globulin Ratio 1.3 % 05/16/22 16:43 Urine Color Yellow (Yellow) 05/16/22 22:02 Urine Turbidity Clear (Clear) 05/16/22 22:02 Urine pH 6.0 (5.0-7.0) 05/16/22 22:02 Ur Specific [place] 1.020 (1.003-1.030) 05/16/22 22:02 Urine Protein <15 mg/dl mg/dL (Negative) 05/16/22 22:02 Urine Glucose (UA) Negative mg/dL (Negative) 05/16/22 22:02 Urine Ketones Negative mg/dL (Negative) 05/16/22 22:02 Urine Blood Negative (Negative) 05/16/22 22:02 Urine Nitrite Negative (Negative) 05/16/22 22:02 Urine Bilirubin Negative (Negative) 05/16/22 22:02 Urine Urobilinogen < 2.0 mg/dL (<2.0) 05/16/22 22:02 Ur Leukocyte Esterase Negative (Negative) 05/16/22 22:02 Urine WBC (Auto) < 1.0 /HPF (0.0-6.0) 05/16/22 22:02 Urine RBC (Auto) < 1.0 /HPF (0.0-6.0) 05/16/22 22:02 Urine Mucus Few /HPF 05/16/22 22:02 Urine Opiates Screen Presumptive positive 05/16/22 22:02 Urine Methadone Screen Presumptive negative 05/16/22 22:02 Ur Barbiturates Screen Presumptive negative 05/16/22 22:02 Ur Phencyclidine Scrn Presumptive negative 05/16/22 22:02 Ur Amphetamines Screen Presumptive positive 05/16/22 22:02 U Benzodiazepines Scrn Presumptive negative 05/16/22 22:02 Urine Cocaine Screen Presumptive negative 05/16/22 22:02 U Marijuana (THC) Screen Presumptive negative 05/16/22 22:02 Drugs of Abuse Note Disclamer 05/16/22 22:02 Microbiology: Microbiology 05/16/22 16:43 Peripheral/Venous Blood Culture - Preliminary Culture in Progress 05/16/22 17:16 Peripheral/Venous Blood Culture - Preliminary Culture in Progress 05/16/22 17:16 Peripheral/Venous Blood Culture - Preliminary Culture in Progress Active Medications - Current Medications Current Medications: Generic Name Dose Route Start Last Admin Trade Name Freq PRN Reason Stop Dose Admin Acetaminophen 650 mg 05/16/22 22:14 Acetaminophen 325 Mg Tab PO Q4H PRN Pain MILD(1-3)/Fever >100.5/DWYER Dextrose 50 ml 05/16/22 22:14 Dextrose 50% In Water (25gm) 50 Ml Syringe IV Q30MIN PRN Hypoglycemia Protocol Famotidine 20 mg 05/17/22 10:00 05/17/22 11:54 Famotidine 20 Mg Tab PO 20 mg BID VALERIE Administration Sodium Chloride 1,000 mls @ 125 mls/hr 05/16/22 22:15 05/17/22 11:47 Nacl 0.9% 1000 Ml IV 125 mls/hr DIRECT VALERIE Administration Piperacillin Sod/Tazobactam Sod 4.5 gm in 100 mls @ 200 mls/hr 05/17/22 01:30 05/17/22 18:26 Zosyn/Ns 4.5gm/100ml IV 200 mls/hr Q8H VALERIE Administration Protocol Clindamycin HCl 900 mg in 50 mls @ 100 mls/hr 05/17/22 03:00 05/17/22 13:36 Cleocin 900 Mg/50 Ml IV 100 mls/hr Q8H VALERIE Administration Insulin Human Lispro 0 unit 05/17/22 07:30 05/17/22 18:19 Insulin Lispro 100 Unit/Ml SUB-Q 4 unit ACHS VALERIE Administration Protocol Magnesium Hydroxide 30 ml 05/16/22 22:14 Magnesium Hydroxide (Mom) Oral Liqd Udc PO Q4H PRN Constipation Morphine Sulfate 2 mg 05/16/22 22:14 Morphine 2 Mg/1 Ml Inj IV Q4H PRN Pain, Moderate (4-6) Morphine Sulfate 4 mg 05/16/22 22:14 Morphine 4 Mg/1 Ml Inj IV Q4H PRN Pain , Severe (7-10) Ondansetron HCl 4 mg 05/16/22 22:14 Ondansetron 4 Mg/2 Ml Inj IV Q8H PRN Nausea And Vomiting Sodium Chloride 10 ml 05/17/22 10:00 05/17/22 11:47 Sodium Chloride 0.9% 10 Ml Flush Syringe IV 10 ml BID VALERIE Administration Sodium Chloride 10 ml 05/16/22 22:14 Sodium Chloride 0.9% 10 Ml Flush Syringe IV PRN PRN LINE FLUSH Nutrition/Malnutrition Assess - Dietary Evaluation Nutrition/Malnutrition Findings: Nutrition Notes Start: 05/17/22 13:32 Freq: Status: Active Protocol: Document 05/17/22 13:32 CM (Rec: 05/17/22 13:37 CM [email or web address]) Co-Sign 05/17/22 13:32 WW Nutrition Notes Need for Assessment generated from: international nurse,Education Initial or Follow up Brief Note Current Diagnosis Diabetes,Sepsis Other Pertinent Diagnosis Scrotal Abscess Current Diet Consistent Carbohydrate Diet Labs/Tests 05/17: Na 134 CO2 20 Pertinent Medications 05/17: Humalog Height 5 ft 7 in Weight 97 kg Usual Body Weight 97.3 kg [place] Body Weight (kg) 67.27 BMI 33.5 Intake Prior to Admission Good Weight change and time frame Pt reported that he is unsure of wt loss [employer], 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 Weight Status Obese Subjective/Other Information RD consult for malnutrition screening tool score 2 and diet education. Pt currenly on Consistent Carbohydrate diet - no ADL notes for %PO intake at this time. No concern for wt loss. Pt denied decrease in appetite. Pt reported he has had diabetes x3 years and is provided diet education and handouts by PCP every 3 months . Inappropriate for education at this time. Burn Absent Trauma Absent GI Symptoms None Food Allergy No Skin Integrity/Comment WNL Minimum of two criteria No Fluid Accumulation N/A Reduced Hospitality Associate Strength N/A (non-severe) Protein-Calorie Malnutrition N\A Nutrition Intervention Change Diet Order: Continue consistent carbohydrate diet Follow-Up By: 05/24/22 Additional Comments Monitor nutrition-related labs and need for further diet education.
[2022-05-17] MEDS ORDERED: FAMOTIDINE 20 MG/2 ML INJ IV ONE (23:08)
[2022-05-18] MEDS: INSULIN LISPRO 100 UNIT/ML SUB-Q SCH ×5 (01:02→16:30)
[2022-05-18] MEDS: PIPERACIL/TAZOBACTA 4.5/NS 100 4.5 GM/100 ML VIAL IV SCH ×3 (02:30→17:30)
[2022-05-18] MEDS: FAMOTIDINE 20 MG TAB PO SCH ×2 (09:36→21:49)
--- NOTE | 2022-05-18 11:45 | Progress Note ---
Assessment and Plan mod edema purulent fluid left perinuem may need i and d just ate breakfast keep npo Subjective Date of service: 05/18/22 Objective - Constitutional Vitals: Vital Signs - 12hr 05/18/22 05/18/22 00:00 06:06 Temperature 97.9 F 99.1 F Pulse Rate 86 83 Respiratory 20 20 Rate Blood Pressure 126/72 127/80 O2 Sat by Pulse 97 95 Oximetry General appearance: Present: no acute distress Extremities: no ischemia - Gastrointestinal General gastrointestinal: Present: soft, non-tender, non-distended - Genitourinary Male genitourinary: tender, asymmetrical - Labs CBC & Chem 7: 05/16/22 16:43 05/17/22 05:23 Labs: Abnormal lab results 05/17/22 05/18/22 Range/Units 16:03 00:56 POC Glucose 294 H 316 H (70-105) mg/dL Medications & Allergies - Medications Allergies/Adverse Reactions: Allergies vancomycin Allergy (Verified 05/17/22 01:28) Rash Home Medications: Home Medications Medication Instructions Recorded Confirmed Last Taken Type Lisinopril/Hydrochlorothiazide 1 tab PO QDAY 05/17/22 05/17/22 Unknown History [Zestoretic 20-25 mg] Active Medications: Generic Name Dose Route Start Last Admin Trade Name Freq PRN Reason Stop Dose Admin Acetaminophen 650 mg 05/16/22 22:14 Acetaminophen 325 Mg Tab PO Q4H PRN Pain MILD(1-3)/Fever >100.5/DWYER Dextrose 50 ml 05/16/22 22:14 Dextrose 50% In Water (25gm) 50 Ml Syringe IV Q30MIN PRN Hypoglycemia Protocol Famotidine 20 mg 05/17/22 10:00 05/18/22 09:36 Famotidine 20 Mg Tab PO 20 mg BID VALERIE Administration Sodium Chloride 1,000 mls @ 125 mls/hr 05/16/22 22:15 05/17/22 11:47 Nacl 0.9% 1000 Ml IV 125 mls/hr DIRECT VALERIE Administration Piperacillin Sod/Tazobactam Sod 4.5 gm in 100 mls @ 200 mls/hr 05/17/22 01:30 05/18/22 09:36 Zosyn/Ns 4.5gm/100ml IV 200 mls/hr Q8H VALERIE Administration Protocol Clindamycin HCl 900 mg in 50 mls @ 100 mls/hr 05/17/22 03:00 05/18/22 03:00 Cleocin 900 Mg/50 Ml IV Not Given Q8H [facility] Insulin Human Lispro 0 unit 05/17/22 07:30 05/18/22 07:30 Insulin Lispro 100 Unit/Ml SUB-Q 4 unit ACHS VALERIE Administration Protocol Magnesium Hydroxide 30 ml 05/16/22 22:14 Magnesium Hydroxide (Mom) Oral Liqd Udc PO Q4H PRN Constipation Morphine Sulfate 2 mg 05/16/22 22:14 Morphine 2 Mg/1 Ml Inj IV Q4H PRN Pain, Moderate (4-6) Morphine Sulfate 4 mg 05/16/22 22:14 Morphine 4 Mg/1 Ml Inj IV Q4H PRN Pain , Severe (7-10) Ondansetron HCl 4 mg 05/16/22 22:14 Ondansetron 4 Mg/2 Ml Inj IV Q8H PRN Nausea And Vomiting Sodium Chloride 10 ml 05/17/22 10:00 05/18/22 09:38 Sodium Chloride 0.9% 10 Ml Flush Syringe IV 10 ml BID VALERIE Administration Sodium Chloride 10 ml 05/16/22 22:14 Sodium Chloride 0.9% 10 Ml Flush Syringe IV PRN PRN LINE FLUSH HEART Score - HEART Score Troponin: Troponin T < 0.010 ng/mL (0.00-0.029) 05/16/22 17:16
[2022-05-18] MEDS: MORPHINE 2 MG/1 ML INJ IV PRN (13:32)
[2022-05-18] MEDS ORDERED: INSULIN GLARGINE 100 UNITS/ML SUB-Q NR (14:30)
--- NOTE | 2022-05-18 19:54 | Progress Note ---
Assessment and Plan Assessment and plan: 41-year-old male with known history of diabetes mellitus presents to the emergency room today complaining of scrotal swelling and pain which has been ongoing for the past 3 days. Patient indicates that he scratched the skin over his scrotum a few days prior and subsequently started having swelling and pain in the scrotum. He developed a fever earlier today. Swelling has been getting worse. Patient denies any nausea or vomiting, no diarrhea. No hematuria or dysuria. Denies any penile discharge. Work-up in the emergency room today, labs reveal leukocytosis of 22.2, blood glucose of 206, C-reactive protein of 10.8. Urinalysis essentially negative. Urine drug screen was positive for amphetamine, opiates. Testicular ultrasound reveals:1. Extensive epididymitis of the left epididymal tail with likely pyocele. 2. Mild increased vascularity within the left testicle as compared to the right, possibly representing developing left-sided orchitis. 3. Skin thickening and edema of the scrotum overlying the left testicle. Pelvic CT reveals:1. Marked abnormality with diffuse scrotal wall thickening, inflammatory change, wall edema and scrotal edema. Diffuse fluid surrounding the testicles. Fines could represent infectious etiology Urologist on-call-Dr. Ellis has been consulted by the ER physician for further evaluation and recommendations. Patient started on empiric IV antibiotics. Assessment: 1.cellulitis of left scrotum with epididymitis 2.Sepsis with fever and leukocytosis which are improving. UA negative. Blood cultures negative to date. 3.Diabetes Mellitus, A1c 8.6, with elevated blood glucose Plan: 1.Admitted and placed on empiric IV antibiotics and fluid 2.holding metformin due to sepsis and placed on insulin 3.Urology consulted, no surgical intervention needed, recommends continuation of IV antibiotic therapy. DVT Prophylaxis: SCD Code Status: Full Code Discussed the patient, and the nursing staff. History Interval history: Patient reports still having significant pain in scrotum, worse on left. However, fever and leukocytosis resolving. BG's remain elevated, insulin therapy being escalated. Hospitalist Physical - Constitutional Vitals: Temp Pulse Resp BP Pulse Ox 99.1 F 83 20 127/80 95 05/18/22 06:06 05/18/22 06:06 05/18/22 06:06 05/18/22 06:06 05/18/22 06:06 General appearance: Present: mild distress - EENT Eyes: Present: PERRL, EOM intact ENT: clear oral mucosa - Neck Neck: Present: supple - Respiratory Respiratory effort: normal Respiratory: bilateral: CTA - Cardiovascular Rhythm: regular - Extremities Extremities: No edema - Abdominal General gastrointestinal: soft, non-tender, non-distended, normal bowel sounds - Integumentary Integumentary: Absent: rash - Psychiatric Psychiatric: appropriate mood/affect - Neurologic Neurologic: no focal deficits - Additional findings Additional findings: Genitalia: Left scrotum is significantly swollen red and tender. Soft and fluctuant. Left spermatic cord tender. HEART Score - HEART Score Troponin: Troponin T < 0.010 ng/mL (0.00-0.029) 05/16/22 17:16 Results - Labs CBC & Chem 7: 05/18/22 22:57 05/18/22 22:57 Labs: Laboratory Last Values WBC 22.2 K/mm3 (4.5-11.0) H 05/16/22 16:43 RBC 5.12 M/mm3 (3.65-5.03) H 05/16/22 16:43 Hgb 15.1 gm/dl (11.8-15.2) 05/16/22 16:43 Hct 44.8 % (35.5-45.6) 05/16/22 16:43 MCV 88 fl (84-94) 05/16/22 16:43 MCH 30 pg (28-32) 05/16/22 16:43 MCHC 34 % (32-34) 05/16/22 16:43 RDW 13.7 % (13.2-15.2) 05/16/22 16:43 Plt Count 183 K/mm3 (140-440) 05/16/22 16:43 Add Manual Diff Complete 05/16/22 16:43 Total Counted 100 05/16/22 16:43 Seg Neuts % (Manual) 92.0 % (40.0-70.0) H 05/16/22 16:43 Band Neutrophils % 0 % 05/16/22 16:43 Lymphocytes % (Manual) 6.0 % (13.4-35.0) L 05/16/22 16:43 Reactive Lymphs % (Man) 0 % 05/16/22 16:43 Monocytes % (Manual) 1.0 % (0.0-7.3) 05/16/22 16:43 Eosinophils % (Manual) 1.0 % (0.0-4.3) 05/16/22 16:43 Basophils % (Manual) 0 % (0.0-1.8) 05/16/22 16:43 Metamyelocytes % 0 % 05/16/22 16:43 Myelocytes % 0 % 05/16/22 16:43 Promyelocytes % 0 % 05/16/22 16:43 Blast Cells % 0 % 05/16/22 16:43 Nucleated RBC % Not Reportable 05/16/22 16:43 Seg Neutrophils # Man 20.4 K/mm3 (1.8-7.7) H 05/16/22 16:43 Band Neutrophils # 0.0 K/mm3 05/16/22 16:43 Lymphocytes # (Manual) 1.3 K/mm3 (1.2-5.4) 05/16/22 16:43 Abs React Lymphs (Man) 0.0 K/mm3 05/16/22 16:43 Monocytes # (Manual) 0.2 K/mm3 (0.0-0.8) 05/16/22 16:43 Eosinophils # (Manual) 0.2 K/mm3 (0.0-0.4) 05/16/22 16:43 Basophils # (Manual) 0.0 K/mm3 (0.0-0.1) 05/16/22 16:43 Metamyelocytes # 0.0 K/mm3 05/16/22 16:43 Myelocytes # 0.0 K/mm3 05/16/22 16:43 Promyelocytes # 0.0 K/mm3 05/16/22 16:43 Blast Cells # 0.0 K/mm3 05/16/22 16:43 WBC Morphology Not Reportable 05/16/22 16:43 Hypersegmented Neuts Not Reportable 05/16/22 16:43 Hyposegmented Neuts Not Reportable 05/16/22 16:43 Hypogranular Neuts Not Reportable 05/16/22 16:43 Smudge Cells Not Reportable 05/16/22 16:43 Toxic Granulation Not Reportable 05/16/22 16:43 Toxic Vacuolation Not Reportable 05/16/22 16:43 Dohle Bodies Not Reportable 05/16/22 16:43 Pelger-Huet Anomaly Not Reportable 05/16/22 16:43 Naila Rods Not Reportable 05/16/22 16:43 Platelet Estimate Consistent w auto 05/16/22 16:43 Clumped Platelets Not Reportable 05/16/22 16:43 Plt Clumps, EDTA Not Reportable 05/16/22 16:43 Large Platelets Few 05/16/22 16:43 Giant Platelets Not Reportable 05/16/22 16:43 Platelet Satelliting Not Reportable 05/16/22 16:43 Plt Morphology Comment Not Reportable 05/16/22 16:43 RBC Morphology Normal 05/16/22 16:43 Dimorphic RBCs Not Reportable 05/16/22 16:43 Polychromasia Not Reportable 05/16/22 16:43 Hypochromasia Not Reportable 05/16/22 16:43 Poikilocytosis Not Reportable 05/16/22 16:43 Anisocytosis Not Reportable 05/16/22 16:43 Microcytosis Not Reportable 05/16/22 16:43 Macrocytosis Not Reportable 05/16/22 16:43 Spherocytes Not Reportable 05/16/22 16:43 Pappenheimer Bodies Not Reportable 05/16/22 16:43 Sickle Cells Not Reportable 05/16/22 16:43 Target Cells Not Reportable 05/16/22 16:43 Tear Drop Cells Not Reportable 05/16/22 16:43 Ovalocytes Not Reportable 05/16/22 16:43 Helmet Cells Not Reportable 05/16/22 16:43 [place] Bodies Not Reportable 05/16/22 16:43 [place] Rings Not Reportable 05/16/22 16:43 [place] Cells Not Reportable 05/16/22 16:43 Bite Cells Not Reportable 05/16/22 16:43 Crenated Cell Not Reportable 05/16/22 16:43 Elliptocytes Not Reportable 05/16/22 16:43 Acanthocytes (Spur) Not Reportable 05/16/22 16:43 Rouleaux Not Reportable 05/16/22 16:43 Hemoglobin C Crystals Not Reportable 05/16/22 16:43 Schistocytes Not Reportable 05/16/22 16:43 Malaria parasites Not Reportable 05/16/22 16:43 Christophe Bodies Not Reportable 05/16/22 16:43 Hem Pathologist Commnt No 05/16/22 16:43 PT 14.4 Sec. (12.2-14.9) 05/16/22 17:16 INR 0.98 (0.87-1.13) 05/16/22 17:16 Sodium 134 mmol/L (137-145) L 05/17/22 05:23 Potassium 4.2 mmol/L (3.6-5.0) 05/17/22 05:23 Chloride 103.5 mmol/L (98-107) 05/17/22 05:23 Carbon Dioxide 20 mmol/L (22-30) L 05/17/22 05:23 Anion Gap 15 mmol/L 05/17/22 05:23 BUN 15 mg/dL (9-20) 05/17/22 05:23 Creatinine 0.7 mg/dL (0.8-1.3) L 05/17/22 05:23 Estimated GFR > 60 ml/min 05/17/22 05:23 BUN/Creatinine Ratio 21 % 05/17/22 05:23 Glucose 310 mg/dL (75-100) H 05/17/22 05:23 POC Glucose 262 mg/dL (70-105) H 05/18/22 16:21 Lactic Acid 1.60 mmol/L (0.7-2.0) 05/16/22 18:22 Calcium 7.9 mg/dL (8.4-10.2) L 05/17/22 05:23 Total Bilirubin 1.00 mg/dL (0.1-1.2) 05/16/22 16:43 AST 24 units/L (5-40) 05/16/22 16:43 ALT 55 units/L (7-56) 05/16/22 16:43 Alkaline Phosphatase 99 units/L (35-129) 05/16/22 16:43 Total Creatine Kinase 210 units/L (55-170) H 05/16/22 17:16 Troponin T < 0.010 ng/mL (0.00-0.029) 05/16/22 17:16 C-Reactive Protein 10.80 mg/dL (0.00-1.30) H 05/16/22 17:16 Total Protein 7.9 g/dL (6.3-8.2) 05/16/22 16:43 Albumin 4.4 g/dL (3.9-5) 05/16/22 16:43 Albumin/Globulin Ratio 1.3 % 05/16/22 16:43 Urine Color Yellow (Yellow) 05/16/22 22:02 Urine Turbidity Clear (Clear) 05/16/22 22:02 Urine pH 6.0 (5.0-7.0) 05/16/22 22:02 Ur Specific [place] 1.020 (1.003-1.030) 05/16/22 22:02 Urine Protein <15 mg/dl mg/dL (Negative) 05/16/22 22:02 Urine Glucose (UA) Negative mg/dL (Negative) 05/16/22 22:02 Urine Ketones Negative mg/dL (Negative) 05/16/22 22:02 Urine Blood Negative (Negative) 05/16/22 22:02 Urine Nitrite Negative (Negative) 05/16/22 22:02 Urine Bilirubin Negative (Negative) 05/16/22 22:02 Urine Urobilinogen < 2.0 mg/dL (<2.0) 05/16/22 22:02 Ur Leukocyte Esterase Negative (Negative) 05/16/22 22:02 Urine WBC (Auto) < 1.0 /HPF (0.0-6.0) 05/16/22 22:02 Urine RBC (Auto) < 1.0 /HPF (0.0-6.0) 05/16/22 22:02 Urine Mucus Few /HPF 05/16/22 22:02 Urine Opiates Screen Presumptive positive 05/16/22 22:02 Urine Methadone Screen Presumptive negative 05/16/22 22:02 Ur Barbiturates Screen Presumptive negative 05/16/22 22:02 Ur Phencyclidine Scrn Presumptive negative 05/16/22 22:02 Ur Amphetamines Screen Presumptive positive 05/16/22 22:02 U Benzodiazepines Scrn Presumptive negative 05/16/22 22:02 Urine Cocaine Screen Presumptive negative 05/16/22 22:02 U Marijuana (THC) Screen Presumptive negative 05/16/22 22:02 Drugs of Abuse Note Disclamer 05/16/22 22:02 Microbiology: Microbiology 05/16/22 16:43 Peripheral/Venous Blood Culture - Preliminary NO GROWTH AFTER 48 HOURS 05/16/22 17:16 Peripheral/Venous Blood Culture - Preliminary NO GROWTH AFTER 48 HOURS 05/16/22 17:16 Peripheral/Venous Blood Culture - Preliminary NO GROWTH AFTER 48 HOURS Rodriguez/IV: Voiding Method Toilet Active Medications - Current Medications Current Medications: Generic Name Dose Route Start Last Admin Trade Name Freq PRN Reason Stop Dose Admin Acetaminophen 650 mg 05/16/22 22:14 Acetaminophen 325 Mg Tab PO Q4H PRN Pain MILD(1-3)/Fever >100.5/DWYER Dextrose 50 ml 05/16/22 22:14 Dextrose 50% In Water (25gm) 50 Ml Syringe IV Q30MIN PRN Hypoglycemia Protocol Famotidine 20 mg 05/17/22 10:00 05/18/22 09:36 Famotidine 20 Mg Tab PO 20 mg BID VALERIE Administration Sodium Chloride 1,000 mls @ 125 mls/hr 05/16/22 22:15 05/17/22 11:47 Nacl 0.9% 1000 Ml IV 125 mls/hr DIRECT VALERIE Administration Piperacillin Sod/Tazobactam Sod 4.5 gm in 100 mls @ 200 mls/hr 05/17/22 01:30 05/18/22 17:30 Zosyn/Ns 4.5gm/100ml IV 200 mls/hr Q8H VALERIE Administration Protocol Clindamycin HCl 900 mg in 50 mls @ 100 mls/hr 05/17/22 03:00 05/18/22 11:00 Cleocin 900 Mg/50 Ml IV 100 mls/hr Q8H VALERIE Administration Insulin Human Lispro 0 unit 05/17/22 07:30 05/18/22 16:30 Insulin Lispro 100 Unit/Ml SUB-Q 4 unit ACHS VALERIE Administration Protocol Insulin Human Lispro 8 unit 05/18/22 16:30 05/18/22 16:30 Insulin Lispro 100 Unit/Ml SUB-Q 8 unit AC VALERIE Administration Magnesium Hydroxide 30 ml 05/16/22 22:14 Magnesium Hydroxide (Mom) Oral Liqd Udc PO Q4H PRN Constipation Morphine Sulfate 2 mg 05/16/22 22:14 05/18/22 13:32 Morphine 2 Mg/1 Ml Inj IV 2 mg Q4H PRN Administration Pain, Moderate (4-6) Morphine Sulfate 4 mg 05/16/22 22:14 Morphine 4 Mg/1 Ml Inj IV Q4H PRN Pain , Severe (7-10) Ondansetron HCl 4 mg 05/16/22 22:14 Ondansetron 4 Mg/2 Ml Inj IV Q8H PRN Nausea And Vomiting Sodium Chloride 10 ml 05/17/22 10:00 05/18/22 09:38 Sodium Chloride 0.9% 10 Ml Flush Syringe IV 10 ml BID VALERIE Administration Sodium Chloride 10 ml 05/16/22 22:14 Sodium Chloride 0.9% 10 Ml Flush Syringe IV PRN PRN LINE FLUSH Nutrition/Malnutrition Assess - Dietary Evaluation Nutrition/Malnutrition Findings: Nutrition Notes Start: 05/17/22 13:32 Freq: Status: Active Protocol: Document 05/17/22 13:32 CM (Rec: 05/17/22 13:37 CM [id number]) Co-Sign 05/17/22 13:32 WW Nutrition Notes Need for Assessment generated from: cooker soda,Education Initial or Follow up Brief Note Current Diagnosis Diabetes,Sepsis Other Pertinent Diagnosis Scrotal Abscess Current Diet Consistent Carbohydrate Diet Labs/Tests 05/17: Na 134 CO2 20 Pertinent Medications 05/17: Humalog Height 5 ft 7 in Weight 97 kg Usual Body Weight 97.3 kg [place] Body Weight (kg) 67.27 BMI 33.5 Intake Prior to Admission Good Weight change and time frame Pt reported that he is unsure of wt loss [employer], 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 Weight Status Obese Subjective/Other Information RD consult for malnutrition screening tool score 2 and diet education. Pt currenly on Consistent Carbohydrate diet - no ADL notes for %PO intake at this time. No concern for wt loss. Pt denied decrease in appetite. Pt reported he has had diabetes x3 years and is provided diet education and handouts by PCP every 3 months . Inappropriate for education at this time. Burn Absent Trauma Absent GI Symptoms None Food Allergy No Skin Integrity/Comment WNL Minimum of two criteria No Fluid Accumulation N/A Reduced Insect Control Aide Strength N/A (non-severe) Protein-Calorie Malnutrition N\A Nutrition Intervention Change Diet Order: Continue consistent carbohydrate diet Follow-Up By: 05/24/22 Additional Comments Monitor nutrition-related labs and need for further diet education.
[2022-05-18 23:39] LABS: Basophils % (Auto) 0.1 % (0.0-1.8); Eosinophils # (Auto) 0.1 K/mm3 (0.0-0.4); Eosinophils % (Auto) 0.9 % (0.0-4.3); Hematocrit 34.8 % (35.5-45.6); Lymphocytes # (Auto) 1.8 K/mm3 (1.2-5.4); Lymphocytes % (Auto) 11.5 % (13.4-35.0); Mean Corpuscular HGB Conc 34 % (32-34); Mean Corpuscular Volume 88 fl (84-94); Monocytes # (Auto) 0.8 K/mm3 (0.0-0.8); Monocytes % (Auto) 4.9 % (0.0-7.3); Platelet Count 132 K/mm3 (140-440); Red Blood Count 3.96 M/mm3 (3.65-5.03); Red Cell Distribution Width 13.8 % (13.2-15.2)
[2022-05-18 23:57] LABS: Alanine Aminotransferase 35 units/L (7-56); Albumin 3.4 g/dL (3.9-5); BUN/Creatinine Ratio 20; Blood Urea Nitrogen 18 mg/dL (9-20); Calcium 8.6 mg/dL (8.4-10.2); Hemolysis Index 6
[2022-05-19] MEDS: PIPERACIL/TAZOBACTA 4.5/NS 100 4.5 GM/100 ML VIAL IV SCH ×2 (02:16→09:30)
[2022-05-19] MEDS: MORPHINE 2 MG/1 ML INJ IV PRN ×2 (02:22→21:53)
[2022-05-19] MEDS: INSULIN LISPRO 100 UNIT/ML SUB-Q SCH ×7 (02:27→16:30)
--- NOTE | 2022-05-19 08:42 | Progress Note ---
Subjective Date of service: 05/19/22 Interval history: NEW TO OUR SERVICE Scrotal Swelling and Pain 41-year-old male with known history of diabetes mellitus presents to the emergency room today complaining of scrotal swelling and pain which has been ongoing for the past 3 days. Patient indicates that he scratched the skin over his scrotum a few days prior and subsequently started having swelling and pain in the scrotum. He developed a fever earlier today. Swelling has been getting worse. Patient denies any nausea or vomiting, no diarrhea. No hematuria or dysuria. Denies any penile discharge. Testicular ultrasound reveals: 1. Extensive epididymitis of the left epididymal tail with likely pyocele. 2. Mild increased vascularity within the left testicle as compared to the right, possibly representing developing left-sided orchitis. 3. Skin thickening and edema of the scrotum overlying the left testicle. Pelvic CT (05-16-22) reveals: - Marked abnormality with diffuse scrotal wall thickening, inflammatory change, wall edema and scrotal edema. Diffuse fluid surrounding the testicles. Fines could represent infectious etiology exam--- normal uncirc phallus scrotal with diffuse swelling----soft, scant drainage from base of scrotum A/P epididymitis repeat CT pelvis for eval of abscess keep npo continue abx Objective - Constitutional Vitals: Vital Signs - 12hr 05/18/22 05/18/22 05/19/22 22:00 22:04 05:01 Temperature 100.2 F H 99.1 F Pulse Rate 88 76 Respiratory 20 20 20 Rate Blood Pressure 145/94 147/95 O2 Sat by Pulse 94 93 92 Oximetry - Labs CBC & Chem 7: 05/18/22 22:57 05/18/22 22:57 Labs: Abnormal lab results 05/18/22 05/18/22 05/18/22 Range/Units 07:22 16:21 22:03 WBC (4.5-11.0) K/mm3 Hct (35.5-45.6) % Plt Count (140-440) K/mm3 Lymph % (Auto) (13.4-35.0) % Seg Neutrophils % (40.0-70.0) % Seg Neutrophils # (1.8-7.7) K/mm3 Glucose (75-100) mg/dL POC Glucose 255 H 262 H 215 H (70-105) mg/dL Hemoglobin A1c (4-6) % Albumin (3.9-5) g/dL 05/18/22 05/18/22 05/18/22 Range/Units 22:57 22:57 22:57 WBC 15.6 H (4.5-11.0) K/mm3 Hct 34.8 L D (35.5-45.6) % Plt Count 132 L (140-440) K/mm3 Lymph % (Auto) 11.5 L (13.4-35.0) % Seg Neutrophils % 82.6 H (40.0-70.0) % Seg Neutrophils # 12.9 H (1.8-7.7) K/mm3 Glucose 191 H (75-100) mg/dL POC Glucose (70-105) mg/dL Hemoglobin A1c 8.6 H (4-6) % Albumin 3.4 L (3.9-5) g/dL 05/19/22 Range/Units 07:09 WBC (4.5-11.0) K/mm3 Hct (35.5-45.6) % Plt Count (140-440) K/mm3 Lymph % (Auto) (13.4-35.0) % Seg Neutrophils % (40.0-70.0) % Seg Neutrophils # (1.8-7.7) K/mm3 Glucose (75-100) mg/dL POC Glucose 143 H (70-105) mg/dL Hemoglobin A1c (4-6) % Albumin (3.9-5) g/dL Medications & Allergies - Medications Allergies/Adverse Reactions: Allergies vancomycin Allergy (Verified 05/17/22 01:28) Rash Home Medications: Home Medications Medication Instructions Recorded Confirmed Last Taken Type Lisinopril/Hydrochlorothiazide 1 tab PO QDAY 05/17/22 05/17/22 Unknown History [Zestoretic 20-25 mg] Active Medications: Generic Name Dose Route Start Last Admin Trade Name Freq PRN Reason Stop Dose Admin Acetaminophen 650 mg 05/16/22 22:14 Acetaminophen 325 Mg Tab PO Q4H PRN Pain MILD(1-3)/Fever >100.5/DWYER Dextrose 50 ml 05/16/22 22:14 Dextrose 50% In Water (25gm) 50 Ml Syringe IV Q30MIN PRN Hypoglycemia Protocol Famotidine 20 mg 05/17/22 10:00 05/18/22 21:49 Famotidine 20 Mg Tab PO 20 mg BID VALERIE Administration Sodium Chloride 1,000 mls @ 125 mls/hr 05/16/22 22:15 05/17/22 11:47 Nacl 0.9% 1000 Ml IV 125 mls/hr DIRECT VALERIE Administration Piperacillin Sod/Tazobactam Sod 4.5 gm in 100 mls @ 200 mls/hr 05/17/22 01:30 05/19/22 02:16 Zosyn/Ns 4.5gm/100ml IV 200 mls/hr Q8H VALERIE Administration Protocol Clindamycin HCl 900 mg in 50 mls @ 100 mls/hr 05/17/22 03:00 05/19/22 03:00 Cleocin 900 Mg/50 Ml IV 100 mls/hr Q8H VALERIE Administration Insulin Human Lispro 0 unit 05/17/22 07:30 05/19/22 07:30 Insulin Lispro 100 Unit/Ml SUB-Q Not Given ACHS [facility] Protocol Insulin Human Lispro 8 unit 05/18/22 16:30 05/18/22 16:30 Insulin Lispro 100 Unit/Ml SUB-Q 8 unit AC VALERIE Administration Magnesium Hydroxide 30 ml 05/16/22 22:14 Magnesium Hydroxide (Mom) Oral Liqd Udc PO Q4H PRN Constipation Morphine Sulfate 2 mg 05/16/22 22:14 05/19/22 02:22 Morphine 2 Mg/1 Ml Inj IV 2 mg Q4H PRN Administration Pain, Moderate (4-6) Morphine Sulfate 4 mg 05/16/22 22:14 Morphine 4 Mg/1 Ml Inj IV Q4H PRN Pain , Severe (7-10) Ondansetron HCl 4 mg 05/16/22 22:14 Ondansetron 4 Mg/2 Ml Inj IV Q8H PRN Nausea And Vomiting Sodium Chloride 10 ml 05/17/22 10:00 05/18/22 21:49 Sodium Chloride 0.9% 10 Ml Flush Syringe IV 10 ml BID VALERIE Administration Sodium Chloride 10 ml 05/16/22 22:14 Sodium Chloride 0.9% 10 Ml Flush Syringe IV PRN PRN LINE FLUSH HEART Score - HEART Score Troponin: Troponin T < 0.010 ng/mL (0.00-0.029) 05/16/22 17:16
--- NOTE | 2022-05-19 10:02 | Consultation ---
History of Present Illness - Reason for Consult Consult date: 05/19/22 Scrotal cellulitis Requesting physician: CAILIN VACA - History of Present Illness The patient is a 41-year-old male with diabetes mellitus admitted with scrotal swelling and pain, testicular ultrasound revealed extensive epididymitis with likely pyocele. CT of the pelvis showed diffuse scrotal wall thickening and edema. Having low-grade fevers. Labs revealed leukocytosis. ID was consulted for antibiotic management. Urinary tox screen was positive for amphetamines. Review of Systems: As per HPI Past History Past Medical History: diabetes, hypertension Past Surgical History: No surgical history Social history: alcohol abuse Family history: no significant family history Medications and Allergies Allergies Allergy/AdvReac Type Severity Reaction Status Date / Time vancomycin Allergy Rash Verified 05/17/22 01:28 Home Medications Medication Instructions Recorded Confirmed Last Taken Type Lisinopril/Hydrochlorothiazide 1 tab PO QDAY 05/17/22 05/17/22 Unknown History [Zestoretic 20-25 mg] Active Meds: Active Medications Acetaminophen (Acetaminophen 325 Mg Tab) 650 mg PO Q4H PRN PRN Reason: Pain MILD(1-3)/Fever >100.5/DWYER Dextrose (Dextrose 50% In Water (25gm) 50 Ml Syringe) 50 ml IV Q30MIN PRN; Protocol PRN Reason: Hypoglycemia Famotidine (Famotidine 20 Mg Tab) 20 mg PO BID [facility] Last Admin: 05/18/22 21:49 Dose: 20 mg Sodium Chloride (Nacl 0.9% 1000 Ml) 1,000 mls @ 125 mls/hr IV DIRECT VALERIE Last Admin: 05/17/22 11:47 Dose: 125 mls/hr Piperacillin Sod/Tazobactam Sod (Zosyn/Ns 4.5gm/100ml) 4.5 gm in 100 mls @ 200 mls/hr IV Q8H VALERIE; Protocol Last Admin: 05/19/22 02:16 Dose: 200 mls/hr Clindamycin HCl (Cleocin 900 Mg/50 Ml) 900 mg in 50 mls @ 100 mls/hr IV Q8H VALERIE Last Admin: 05/19/22 03:00 Dose: 100 mls/hr Insulin Human Lispro (Insulin Lispro 100 Unit/Ml) 0 unit SUB-Q ACHS VALERIE; Protocol Last Admin: 05/19/22 07:30 Dose: Not Given Insulin Human Lispro (Insulin Lispro 100 Unit/Ml) 8 unit SUB-Q AC [facility] Last Admin: 05/18/22 16:30 Dose: 8 unit Magnesium Hydroxide (Magnesium Hydroxide (Mom) Oral Liqd Udc) 30 ml PO Q4H PRN PRN Reason: Constipation Morphine Sulfate (Morphine 2 Mg/1 Ml Inj) 2 mg IV Q4H PRN PRN Reason: Pain, Moderate (4-6) Last Admin: 05/19/22 02:22 Dose: 2 mg Morphine Sulfate (Morphine 4 Mg/1 Ml Inj) 4 mg IV Q4H PRN PRN Reason: Pain , Severe (7-10) Ondansetron HCl (Ondansetron 4 Mg/2 Ml Inj) 4 mg IV Q8H PRN PRN Reason: Nausea And Vomiting Sodium Chloride (Sodium Chloride 0.9% 10 Ml Flush Syringe) 10 ml IV BID [facility] Last Admin: 05/18/22 21:49 Dose: 10 ml Sodium Chloride (Sodium Chloride 0.9% 10 Ml Flush Syringe) 10 ml IV PRN PRN PRN Reason: LINE FLUSH Physical Examination - Physical Exam Narrative exam: Physical Exam: Constitutional: Alert, cooperative. No acute distress Head, Ears, Nose: Normocephalic, atraumatic. External ears, nose normal Eyes: Conjunctivae/corneas clear. No icterus. No ptosis. Neck: Supple, no meningeal signs Cardiovascular: S1, S2 + Respiratory: Good air entry, clear to auscultation bilaterally GI: Soft, non-tender; bowel sounds normal. No peritoneal signs Musculoskeletal: No pedal edema, no cyanosis. : Left scrotal swelling, tenderness Skin: No rash or abscess Hem/Lymphatic: No palpable cervical or supraclavicular nodes. No lymphangitis Psych: Mood ok. Affect normal Neurological: Awake, alert, oriented. No gross abnormality - Constitutional Vitals: Vital Signs Temp Pulse Resp BP Pulse Ox 99.1 F 76 20 147/95 92 05/19/22 05:01 05/19/22 05:01 05/19/22 05:01 05/19/22 05:01 05/19/22 05:01 Temperature -Last 24 Hours Temperature 99.1 F Temperature 100.2 F Temperature 100.0 F Temperature 98.6 F Results - Labs CBC & Chem 7: 05/18/22 22:57 05/18/22 22:57 Labs: Abnormal lab results 05/18/22 05/18/22 05/18/22 Range/Units 07:22 16:21 22:03 WBC (4.5-11.0) K/mm3 Hct (35.5-45.6) % Plt Count (140-440) K/mm3 Lymph % (Auto) (13.4-35.0) % Seg Neutrophils % (40.0-70.0) % Seg Neutrophils # (1.8-7.7) K/mm3 Glucose (75-100) mg/dL POC Glucose 255 H 262 H 215 H (70-105) mg/dL Hemoglobin A1c (4-6) % Albumin (3.9-5) g/dL 05/18/22 05/18/22 05/18/22 Range/Units 22:57 22:57 22:57 WBC 15.6 H (4.5-11.0) K/mm3 Hct 34.8 L D (35.5-45.6) % Plt Count 132 L (140-440) K/mm3 Lymph % (Auto) 11.5 L (13.4-35.0) % Seg Neutrophils % 82.6 H (40.0-70.0) % Seg Neutrophils # 12.9 H (1.8-7.7) K/mm3 Glucose 191 H (75-100) mg/dL POC Glucose (70-105) mg/dL Hemoglobin A1c 8.6 H (4-6) % Albumin 3.4 L (3.9-5) g/dL 05/19/22 Range/Units 07:09 WBC (4.5-11.0) K/mm3 Hct (35.5-45.6) % Plt Count (140-440) K/mm3 Lymph % (Auto) (13.4-35.0) % Seg Neutrophils % (40.0-70.0) % Seg Neutrophils # (1.8-7.7) K/mm3 Glucose (75-100) mg/dL POC Glucose 143 H (70-105) mg/dL Hemoglobin A1c (4-6) % Albumin (3.9-5) g/dL Assessment and Plan Cultures: 05/16/2022 blood culture: no growth A/P: 41-year-old male with diabetes mellitus admitted with scrotal swelling and pain, testicular ultrasound revealed extensive epididymitis with likely pyocele: #Scrotal cellulitis, ?abscess, epididymitis, likely pyocele #Sepsis, secondary to above #Substance abuse: Urinary tox screen positive for amphetamines #Diabetes mellitus, uncontrolled #Vancomycin allergy Recs: -Empiric Cefepime, Flagyl, daptomycin (vancomycin allergy and mild thrombocytopenia) -Monitor WBC and response -Urology following Etienne Hightower MD, FACP, [facility] O: [phone] F: [phone] C: [phone]
[2022-05-19] MEDS: FAMOTIDINE 20 MG TAB PO SCH ×2 (10:18→21:54)
[2022-05-19] MEDS: SODIUM CHLORIDE 0.9% 1000 ML 1,000 ML IV SCH (10:23)
--- NOTE | 2022-05-19 10:41 | Cat Scan Report ---
CT PELVIS WITHOUT CONTRAST INDICATION / CLINICAL INFORMATION: eval for abscess. TECHNIQUE: Axial CT images were obtained through the pelvis without contrast. All CT [facility] at [facility] are performed using CT dose reduction for ALARA by means of automated exposure control. COMPARISON: CT pelvis with contrast from 05/16/2022. FINDINGS: BOWEL: No acute findings. There is noninflamed sigmoid diverticulosis. APPENDIX: No significant abnormality. PERITONEUM: No free fluid. No free air. No fluid collection. LYMPH NODES: No significant adenopathy. ARTERIES: No significant abnormality. VEINS: No significant abnormality. URINARY BLADDER: No significant abnormality. REPRODUCTIVE ORGANS: No significant abnormality. ADDITIONAL FINDINGS: Previously reported scrotal edema is partially included. No significant interval change is appreciated as visualized. SKELETAL SYSTEM: No acute findings or significant interval changes. IMPRESSION: 1. No pelvic abscess or other new acute findings are identified. Signer Name: Gregory Morales MD Signed: 05/19/2022 10:36 AM Workstation Name: [id number]
--- NOTE | 2022-05-19 12:05 | Event Note ---
Date: 05/19/[address] PELVIS TODAY----NO CHANGES, NO ABSCESS Pelvic CT (05-16-22) reveals: - Marked abnormality with diffuse scrotal wall thickening, inflammatory change, wall edema and scrotal edema. Diffuse fluid surrounding the testicles. Fines could represent infectious etiology A/P epididymitis NO SURGICAL INTERVENTION NEEDED continue abx
--- NOTE | 2022-05-19 12:48 | Progress Note ---
Assessment and Plan Assessment and plan: 41-year-old male with known history of diabetes mellitus presents to the emergency room today complaining of scrotal swelling and pain which has been ongoing for the past 3 days. Patient indicates that he scratched the skin over his scrotum a few days prior and subsequently started having swelling and pain in the scrotum. He developed a fever earlier today. Swelling has been getting worse. Patient denies any nausea or vomiting, no diarrhea. No hematuria or dysuria. Denies any penile discharge. Work-up in the emergency room today, labs reveal leukocytosis of 22.2, blood glucose of 206, C-reactive protein of 10.8. Urinalysis essentially negative. Urine drug screen was positive for amphetamine, opiates. Testicular ultrasound reveals:1. Extensive epididymitis of the left epididymal tail with likely pyocele. 2. Mild increased vascularity within the left testicle as compared to the right, possibly representing developing left-sided orchitis. 3. Skin thickening and edema of the scrotum overlying the left testicle. Pelvic CT reveals:1. Marked abnormality with diffuse scrotal wall thickening, inflammatory change, wall edema and scrotal edema. Diffuse fluid surrounding the testicles. Fines could represent infectious etiology Urologist on-call-Dr. Ellis has been consulted by the ER physician for further evaluation and recommendations. Patient started on empiric IV antibiotics. Assessment: #Cellulitis of left scrotum with epididymitis #Sepsisimproving Continue cefepime 2 g every 8 hours Infectious disease consulted; appreciate recs Urology consulted; appreciate recs. Currently no abscess present on CT; therefore, no surgical intervention at this time. #Non-insulin dependent type II diabetes mellitus - hemoglobin A1c: 8.6 - home regimen: N/A - current regimen: Moderate SSI - blood glucose goal 140-180 while inpatient - continue to monitor #Obesity #Weight loss counseling #Exercise counseling - BMI 33.9 - Counseled patient on the importance of weight loss, incorporating exercise, and dietary changes (lean meats, fresh fruits and vegetables, and water intake). Patient expresses understanding. - Time: +15 min #Advanced care planning -Disease education conducted, care plan discussed, diagnoses discussed, prognosis discussed, and patient acknowledges understanding with care plan -Time: +30 min Disposition Plan: Continue medical management Total Time Spent with Patient (Minutes): 45 minutes History Interval history: No acute events overnight. Hospitalist Physical - Constitutional Vitals: Temp Pulse Resp BP Pulse Ox 98.8 F 68 18 134/88 95 05/19/22 11:38 05/19/22 11:38 05/19/22 11:38 05/19/22 11:38 05/19/22 11:38 General appearance: Present: no acute distress, well-nourished, obese - EENT Eyes: Present: PERRL, EOM intact ENT: hearing intact, clear oral mucosa, dentition normal - Neck Neck: Present: supple, normal ROM - Respiratory Respiratory effort: normal Respiratory: bilateral: CTA - Cardiovascular Rhythm: regular Heart Sounds: Present: S1 & S2 - Extremities Extremities: no ischemia, pulses intact, pulses symmetrical, No edema, normal temperature, normal color, Full ROM Peripheral Pulses: within normal limits - Abdominal General gastrointestinal: soft, non-tender, non-distended, normal bowel sounds - Integumentary Integumentary: Present: clear, warm, dry - Psychiatric Psychiatric: appropriate mood/affect, intact judgment & insight, memory intact, cooperative - Neurologic Neurologic: CNII-XII intact, moves all extremities - Allied Health Allied health notes reviewed: nursing HEART Score - HEART Score Troponin: Troponin T < 0.010 ng/mL (0.00-0.029) 05/16/22 17:16 Results - Labs CBC & Chem 7: 05/18/22 22:57 05/18/22 22:57 Labs: Laboratory Last Values WBC 15.6 K/mm3 (4.5-11.0) H 05/18/22 22:57 RBC 3.96 M/mm3 (3.65-5.03) 05/18/22 22:57 Hgb 12.0 gm/dl (11.8-15.2) D 05/18/22 22:57 Hct 34.8 % (35.5-45.6) L D 05/18/22 22:57 MCV 88 fl (84-94) 05/18/22 22:57 MCH 30 pg (28-32) 05/18/22 22:57 MCHC 34 % (32-34) 05/18/22 22:57 RDW 13.8 % (13.2-15.2) 05/18/22 22:57 Plt Count 132 K/mm3 (140-440) L 05/18/22 22:57 Lymph % (Auto) 11.5 % (13.4-35.0) L 05/18/22 22:57 [place] % (Auto) 4.9 % (0.0-7.3) 05/18/22 22:57 Eos % (Auto) 0.9 % (0.0-4.3) 05/18/22 22:57 Baso % (Auto) 0.1 % (0.0-1.8) 05/18/22 22:57 Lymph # (Auto) 1.8 K/mm3 (1.2-5.4) 05/18/22 22:57 [place] # (Auto) 0.8 K/mm3 (0.0-0.8) 05/18/22 22:57 Eos # (Auto) 0.1 K/mm3 (0.0-0.4) 05/18/22 22:57 Baso # (Auto) 0.0 K/mm3 (0.0-0.1) 05/18/22 22:57 Add Manual Diff Complete 05/16/22 16:43 Total Counted 100 05/16/22 16:43 Seg Neutrophils % 82.6 % (40.0-70.0) H 05/18/22 22:57 Seg Neuts % (Manual) 92.0 % (40.0-70.0) H 05/16/22 16:43 Band Neutrophils % 0 % 05/16/22 16:43 Lymphocytes % (Manual) 6.0 % (13.4-35.0) L 05/16/22 16:43 Reactive Lymphs % (Man) 0 % 05/16/22 16:43 Monocytes % (Manual) 1.0 % (0.0-7.3) 05/16/22 16:43 Eosinophils % (Manual) 1.0 % (0.0-4.3) 05/16/22 16:43 Basophils % (Manual) 0 % (0.0-1.8) 05/16/22 16:43 Metamyelocytes % 0 % 05/16/22 16:43 Myelocytes % 0 % 05/16/22 16:43 Promyelocytes % 0 % 05/16/22 16:43 Blast Cells % 0 % 05/16/22 16:43 Nucleated RBC % Not Reportable 05/16/22 16:43 Seg Neutrophils # 12.9 K/mm3 (1.8-7.7) H 05/18/22 22:57 Seg Neutrophils # Man 20.4 K/mm3 (1.8-7.7) H 05/16/22 16:43 Band Neutrophils # 0.0 K/mm3 05/16/22 16:43 Lymphocytes # (Manual) 1.3 K/mm3 (1.2-5.4) 05/16/22 16:43 Abs React Lymphs (Man) 0.0 K/mm3 05/16/22 16:43 Monocytes # (Manual) 0.2 K/mm3 (0.0-0.8) 05/16/22 16:43 Eosinophils # (Manual) 0.2 K/mm3 (0.0-0.4) 05/16/22 16:43 Basophils # (Manual) 0.0 K/mm3 (0.0-0.1) 05/16/22 16:43 Metamyelocytes # 0.0 K/mm3 05/16/22 16:43 Myelocytes # 0.0 K/mm3 05/16/22 16:43 Promyelocytes # 0.0 K/mm3 05/16/22 16:43 Blast Cells # 0.0 K/mm3 05/16/22 16:43 WBC Morphology Not Reportable 05/16/22 16:43 Hypersegmented Neuts Not Reportable 05/16/22 16:43 Hyposegmented Neuts Not Reportable 05/16/22 16:43 Hypogranular Neuts Not Reportable 05/16/22 16:43 Smudge Cells Not Reportable 05/16/22 16:43 Toxic Granulation Not Reportable 05/16/22 16:43 Toxic Vacuolation Not Reportable 05/16/22 16:43 Dohle Bodies Not Reportable 05/16/22 16:43 Pelger-Huet Anomaly Not Reportable 05/16/22 16:43 Naila Rods Not Reportable 05/16/22 16:43 Platelet Estimate Consistent w auto 05/16/22 16:43 Clumped Platelets Not Reportable 05/16/22 16:43 Plt Clumps, EDTA Not Reportable 05/16/22 16:43 Large Platelets Few 05/16/22 16:43 Giant Platelets Not Reportable 05/16/22 16:43 Platelet Satelliting Not Reportable 05/16/22 16:43 Plt Morphology Comment Not Reportable 05/16/22 16:43 RBC Morphology Normal 05/16/22 16:43 Dimorphic RBCs Not Reportable 05/16/22 16:43 Polychromasia Not Reportable 05/16/22 16:43 Hypochromasia Not Reportable 05/16/22 16:43 Poikilocytosis Not Reportable 05/16/22 16:43 Anisocytosis Not Reportable 05/16/22 16:43 Microcytosis Not Reportable 05/16/22 16:43 Macrocytosis Not Reportable 05/16/22 16:43 Spherocytes Not Reportable 05/16/22 16:43 Pappenheimer Bodies Not Reportable 05/16/22 16:43 Sickle Cells Not Reportable 05/16/22 16:43 Target Cells Not Reportable 05/16/22 16:43 Tear Drop Cells Not Reportable 05/16/22 16:43 Ovalocytes Not Reportable 05/16/22 16:43 Helmet Cells Not Reportable 05/16/22 16:43 Sosa-Maurice Bodies Not Reportable 05/16/22 16:43 [place] Rings Not Reportable 05/16/22 16:43 Garo Cells Not Reportable 05/16/22 16:43 Bite Cells Not Reportable 05/16/22 16:43 Crenated Cell Not Reportable 05/16/22 16:43 Elliptocytes Not Reportable 05/16/22 16:43 Acanthocytes (Spur) Not Reportable 05/16/22 16:43 Rouleaux Not Reportable 05/16/22 16:43 Hemoglobin C Crystals Not Reportable 05/16/22 16:43 Schistocytes Not Reportable 05/16/22 16:43 Malaria parasites Not Reportable 05/16/22 16:43 Christophe Bodies Not Reportable 05/16/22 16:43 Hem Pathologist Commnt No 05/16/22 16:43 PT 14.4 Sec. (12.2-14.9) 05/16/22 17:16 INR 0.98 (0.87-1.13) 05/16/22 17:16 Sodium 140 mmol/L (137-145) 05/18/22 22:57 Potassium 4.2 mmol/L (3.6-5.0) 05/18/22 22:57 Chloride 106.9 mmol/L (98-107) 05/18/22 22:57 Carbon Dioxide 23 mmol/L (22-30) 05/18/22 22:57 Anion Gap 14 mmol/L 05/18/22 22:57 BUN 18 mg/dL (9-20) 05/18/22 22:57 Creatinine 0.9 mg/dL (0.8-1.3) 05/18/22 22:57 Estimated GFR > 60 ml/min 05/18/22 22:57 BUN/Creatinine Ratio 20 % 05/18/22 22:57 Glucose 191 mg/dL (75-100) H 05/18/22 22:57 POC Glucose 143 mg/dL (70-105) H 05/19/22 07:09 Hemoglobin A1c 8.6 % (4-6) H 05/18/22 22:57 Lactic Acid 1.60 mmol/L (0.7-2.0) 05/16/22 18:22 Calcium 8.6 mg/dL (8.4-10.2) 05/18/22 22:57 Total Bilirubin 0.40 mg/dL (0.1-1.2) 05/18/22 22:57 AST 17 units/L (5-40) 05/18/22 22:57 ALT 35 units/L (7-56) 05/18/22 22:57 Alkaline Phosphatase 80 units/L (35-129) 05/18/22 22:57 Total Creatine Kinase 210 units/L (55-170) H 05/16/22 17:16 Troponin T < 0.010 ng/mL (0.00-0.029) 05/16/22 17:16 C-Reactive Protein 10.80 mg/dL (0.00-1.30) H 05/16/22 17:16 Total Protein 6.4 g/dL (6.3-8.2) 05/18/22 22:57 Albumin 3.4 g/dL (3.9-5) L 05/18/22 22:57 Albumin/Globulin Ratio 1.1 % 05/18/22 22:57 Urine Color Yellow (Yellow) 05/16/22 22:02 Urine Turbidity Clear (Clear) 05/16/22 22:02 Urine pH 6.0 (5.0-7.0) 05/16/22 22:02 Ur Specific [place] 1.020 (1.003-1.030) 05/16/22 22:02 Urine Protein <15 mg/dl mg/dL (Negative) 05/16/22 22:02 Urine Glucose (UA) Negative mg/dL (Negative) 05/16/22 22:02 Urine Ketones Negative mg/dL (Negative) 05/16/22 22:02 Urine Blood Negative (Negative) 05/16/22 22:02 Urine Nitrite Negative (Negative) 05/16/22 22:02 Urine Bilirubin Negative (Negative) 05/16/22 22:02 Urine Urobilinogen < 2.0 mg/dL (<2.0) 05/16/22 22:02 Ur Leukocyte Esterase Negative (Negative) 05/16/22 22:02 Urine WBC (Auto) < 1.0 /HPF (0.0-6.0) 05/16/22 22:02 Urine RBC (Auto) < 1.0 /HPF (0.0-6.0) 05/16/22 22:02 Urine Mucus Few /HPF 05/16/22 22:02 Urine Opiates Screen Presumptive positive 05/16/22 22:02 Urine Methadone Screen Presumptive negative 05/16/22 22:02 Ur Barbiturates Screen Presumptive negative 05/16/22 22:02 Ur Phencyclidine Scrn Presumptive negative 05/16/22 22:02 Ur Amphetamines Screen Presumptive positive 05/16/22 22:02 U Benzodiazepines Scrn Presumptive negative 05/16/22 22:02 Urine Cocaine Screen Presumptive negative 05/16/22 22:02 U Marijuana (THC) Screen Presumptive negative 05/16/22 22:02 Drugs of Abuse Note Disclamer 05/16/22 22:02 Microbiology: Microbiology 05/16/22 16:43 Peripheral/Venous Blood Culture - Preliminary NO GROWTH AFTER 48 HOURS 05/16/22 17:16 Peripheral/Venous Blood Culture - Preliminary NO GROWTH AFTER 48 HOURS 05/16/22 17:16 Peripheral/Venous Blood Culture - Preliminary NO GROWTH AFTER 48 HOURS Rodriguez/IV: Voiding Method Toilet Active Medications - Current Medications Current Medications: Generic Name Dose Route Start Last Admin Trade Name Freq PRN Reason Stop Dose Admin Acetaminophen 650 mg 05/16/22 22:14 Acetaminophen 325 Mg Tab PO Q4H PRN Pain MILD(1-3)/Fever >100.5/DWYER Dextrose 50 ml 05/16/22 22:14 Dextrose 50% In Water (25gm) 50 Ml Syringe IV Q30MIN PRN Hypoglycemia Protocol Famotidine 20 mg 05/17/22 10:00 05/19/22 10:18 Famotidine 20 Mg Tab PO 20 mg BID VALERIE Administration Cefepime HCl 2 gm in 100 mls @ 200 mls/hr 05/19/22 14:00 Cefepime/Ns 2 Gm/100 Ml IV Q8HR [facility] Protocol Daptomycin 500 mg/ Sodium 100 mls @ 200 mls/hr 05/19/22 11:00 05/19/22 11:00 Chloride IV 200 mls/hr Q24H VALERIE Administration Protocol Insulin Human Lispro 0 unit 05/17/22 07:30 05/19/22 11:30 Insulin Lispro 100 Unit/Ml SUB-Q Not Given ACHS [facility] Protocol Insulin Human Lispro 8 unit 05/18/22 16:30 05/19/22 11:30 Insulin Lispro 100 Unit/Ml SUB-Q 8 unit AC [facility] Administration Magnesium Hydroxide 30 ml 05/16/22 22:14 Magnesium Hydroxide (Mom) Oral Liqd Udc PO Q4H PRN Constipation Metronidazole 500 mg 05/19/22 14:00 Metronidazole 500 Mg Tab PO Q8HR [facility] Protocol Morphine Sulfate 2 mg 05/16/22 22:14 05/19/22 02:22 Morphine 2 Mg/1 Ml Inj IV 2 mg Q4H PRN Administration Pain, Moderate (4-6) Morphine Sulfate 4 mg 05/16/22 22:14 05/19/22 10:16 Morphine 4 Mg/1 Ml Inj IV 4 mg Q4H PRN Administration Pain , Severe (7-10) Ondansetron HCl 4 mg 05/16/22 22:14 Ondansetron 4 Mg/2 Ml Inj IV Q8H PRN Nausea And Vomiting Sodium Chloride 10 ml 05/17/22 10:00 05/19/22 10:18 Sodium Chloride 0.9% 10 Ml Flush Syringe IV 10 ml BID VALERIE Administration Sodium Chloride 10 ml 05/16/22 22:14 Sodium Chloride 0.9% 10 Ml Flush Syringe IV PRN PRN LINE FLUSH Nutrition/Malnutrition Assess - Dietary Evaluation Nutrition/Malnutrition Findings: Nutrition Notes Start: 05/17/22 13:32 Freq: Status: Active Protocol: Document 05/17/22 13:32 CM (Rec: 05/17/22 13:37 CM [email or web address]) Co-Sign 05/17/22 13:32 WW Nutrition Notes 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 Weight Status Obese Subjective/Other Information RD consult for malnutrition screening tool score 2 and diet education. Pt currenly on Consistent Carbohydrate diet - no ADL notes for %PO intake at this time. No concern for wt loss. Pt denied decrease in appetite. Pt reported he has had diabetes x3 years and is provided diet education and handouts by PCP every 3 months . Inappropriate for education at this time. Burn Absent Trauma Absent GI Symptoms None Food Allergy No Skin Integrity/Comment WNL Minimum of two criteria No Fluid Accumulation N/A Reduced Printing Supervisor Strength N/A (non-severe) Protein-Calorie Malnutrition N\A Nutrition Intervention Change Diet Order: Continue consistent carbohydrate diet Follow-Up By: 05/24/22 Additional Comments Monitor nutrition-related labs and need for further diet education.
[2022-05-19] MEDS: CEFEPIME/NS 2 GM/100 ML 2 GM/100 ML BAG IV SCH ×2 (14:09→21:53)
[2022-05-19] MEDS: metroNIDAZOLE 500 MG TAB PO SCH ×2 (14:10→21:54)
[2022-05-19 21:10] VITALS: BP 137/92
== END 2022-05-19 23:05 | disposition home or self-care (01) | DRG 872 ==
LOC: ED 14:49 → 3A 22:15
PROVIDERS: ADMIT Internal Medicine Geriatric Medicine; ATTEND Student in an Organized Health Care Education/Training Program
DX: A41.9 Sepsis, unspecified organism (principal); N49.2 Inflammatory disorders of scrotum; E11.9 Type 2 diabetes mellitus without complications; E66.9 Obesity, unspecified; Z68.33 Body mass index [BMI] 33.0-33.9, adult; T36.8X5A Adverse effect of other systemic antibiotics, initial encounter
CPT/HCPCS: 36415; 72192; 72193; 80048; 80053; 80307; 81001; 82140; 82550; 82962; 83036; 84484; 85007; 85025; 85610; 86140; 87040; 93975; 96374; 96375; 99285; G0378; J7502; Q9967; J0692; J0878; J1200; J1815; J1885; J2270; J2543; J2930; J3370; J7030